=== PATIENT | female | born 1990 | race Two or more races ===

== ENCOUNTER → 2020-03-14 | Outpatient (CLI) | payer SELFPAY | END | disposition home or self-care (01) | LOC: LABWHC1 14:18 | PROVIDERS: ATTEND Family Medicine | DX: R05 Cough (principal) ==

== ENCOUNTER → 2020-06-24 | Outpatient (CLI) | payer SELFPAY | END | disposition home or self-care (01) | LOC: LABWHC1 11:41 | PROVIDERS: ATTEND Family Medicine | DX: Z20.828 Contact with and (suspected) exposure to other viral communicable diseases (principal) | CPT/HCPCS: U0003; C9803 ==

== ENCOUNTER 2020-09-10 13:55 | Emergency (ER) | payer BC ==
[2020-09-10] MEDS ORDERED: SODIUM CHLORIDE 0.9% 2,000 ML IV STA (14:07)
[2020-09-10] MEDS ORDERED: METOCLOPRAMIDE 5 MG/ML 2 ML VIAL IVP STA (14:07)
[2020-09-10] MEDS ORDERED: diphenhydrAMINE 50 MG/ML 1 ML VIAL IVP STA (14:07)
--- NOTE | 2020-09-10 14:23 | ED ---
General Adult HPI - General Chief complaint: Nausea/Vomiting/Diarrhea Stated complaint: Vomiting, 6 wks preg Time Seen by Provider: 09/10/20 14:00 Source: patient, family, RN notes reviewed Mode of arrival: ambulatory Limitations: no limitations - History of Present Illness Initial comments: This is a 30-year-old female presents emergency from chief complaint nausea vomiting . Patient states she is A0 states that she is approximately 7 weeks states that she's had mild crampypain or bleeding. Patient states she feels dehydrated. She was instructed, to presents emergency Department for IV fluids. She states she's been vomiting for 2 days. Patient denies any dysuria hematuria no flank pain no back pain no chest pain or shortness breath. - Related Data Home Medications Medication Instructions Recorded Confirmed Dextroamphetamine/Amphetamine 10 mg PO DAILY PRN 09/10/20 09/10/20 [Adderall] Sertraline HCl [Zoloft] 12.5 mg PO Q48H 09/10/20 09/10/20 Previous Rx's Medication Instructions Recorded Cephalexin [Keflex] 500 mg PO Q8HR #21 cap 09/10/20 Allergies Allergy/AdvReac Type Severity Reaction Status Date / Time No Known Allergies Allergy Verified 09/10/20 15:37 Review of Systems ROS Statement: Those systems with pertinent positive or pertinent negative responses have been documented in the HPI. ROS Other: All systems not noted in ROS Statement are negative. Past Medical History Past Medical History: No Reported History History of Any Multi-Drug Resistant Organisms: None Reported Past Surgical History: No Surgical Hx Reported Past Psychological History: Anxiety, Depression Smoking Status: Never smoker Past Alcohol Use History: Occasional Past Drug Use History: None Reported General Exam General appearance: alert, in no apparent distress Head exam: Present: atraumatic, normocephalic, normal inspection Eye exam: Present: normal appearance, PERRL, EOMI. Absent: scleral icterus, conjunctival injection, periorbital swelling ENT exam: Present: normal exam, normal oropharynx, mucous membranes moist Neck exam: Present: normal inspection, full ROM. Absent: tenderness, meningismus, lymphadenopathy Respiratory exam: Present: normal lung sounds bilaterally. Absent: respiratory distress, wheezes, rales, rhonchi, stridor Cardiovascular Exam: Present: normal rhythm, tachycardia, normal heart sounds. Absent: systolic murmur, diastolic murmur, rubs, gallop, clicks GI/Abdominal exam: Present: soft, normal bowel sounds. Absent: distended, tenderness, guarding, rebound, rigid Neurological exam: Present: alert, oriented X3, CN II-XII intact Skin exam: Present: warm, dry, intact, normal color. Absent: rash Course Vital Signs 09/10/20 09/10/20 13:57 15:36 Temperature 98.2 F 98.6 F Pulse Rate 120 H 86 Respiratory 20 18 Rate Blood Pressure 121/86 108/61 O2 Sat by Pulse 97 100 Oximetry Medical Decision Making - Medical Decision Making Ultrasound shows viable IUP 6 weeks and 3 days. Patient abdomen soft nontender this time she feels greatly improved. IV fluids. Patient has prescription for Zofran at home. Patient will be discharged in stable condition patient does have evidence of urinary tract infection. - Lab Data Result diagrams: 09/10/20 14:27 09/10/20 14:27 Lab Results 09/10/20 09/10/20 09/10/20 Range/Units 14:27 14:27 15:33 WBC 10.2 (3.8-10.6) k/uL RBC 4.60 (3.80-5.40) m/uL Hgb 14.7 (11.4-16.0) gm/dL Hct 43.0 (34.0-46.0) % MCV 93.6 (80.0-100.0) fL MCH 31.9 (25.0-35.0) pg MCHC 34.1 (31.0-37.0) g/dL RDW 13.3 (11.5-15.5) % Plt Count 226 (150-450) k/uL MPV 8.7 Neutrophils % 69 % Lymphocytes % 21 % Monocytes % 7 % Eosinophils % 1 % Basophils % 0 % Neutrophils # 7.0 (1.3-7.7) k/uL Lymphocytes # 2.2 (1.0-4.8) k/uL Monocytes # 0.7 (0-1.0) k/uL Eosinophils # 0.1 (0-0.7) k/uL Basophils # 0.0 (0-0.2) k/uL Sodium 137 (137-145) mmol/L Potassium 4.0 (3.5-5.1) mmol/L Chloride 103 (98-107) mmol/L Carbon Dioxide 23 (22-30) mmol/L Anion Gap 11 mmol/L BUN 6 L (7-17) mg/dL Creatinine 0.49 L (0.52-1.04) mg/dL Est GFR (CKD-EPI)AfAm >90 (>60 ml/min/1.73 sqM) Est GFR (CKD-EPI)NonAf >90 (>60 ml/min/1.73 sqM) Glucose 105 H (74-99) mg/dL Calcium 9.5 (8.4-10.2) mg/dL Total Bilirubin 0.7 (0.2-1.3) mg/dL AST 25 (14-36) U/L ALT 25 (4-34) U/L Alkaline Phosphatase 67 (38-126) U/L Total Protein 8.0 (6.3-8.2) g/dL Albumin 4.5 (3.5-5.0) g/dL Amylase 64 (30-110) U/L Lipase 185 (23-300) U/L HCG, Quant 44455.7 mIU/mL Urine Color Light Yellow Urine Appearance Cloudy H (Clear) Urine pH 7.5 (5.0-8.0) Ur Specific [place] 1.005 (1.001-1.035) Urine Protein Negative (Negative) Urine Glucose (UA) Negative (Negative) Urine Ketones Negative (Negative) Urine Blood Small H (Negative) Urine Nitrite Negative (Negative) Urine Bilirubin Negative (Negative) Urine Urobilinogen <2.0 (<2.0) mg/dL Ur Leukocyte Esterase Large H (Negative) Urine RBC 2 (0-5) /hpf Urine WBC 20 H (0-5) /hpf Ur Squamous Epith Cells 10 H (0-4) /hpf Urine Bacteria Occasional H (None) /hpf Urine Mucus Rare H (None) /hpf Disposition Clinical Impression: Dehydration, Nausea/vomiting in , UTI (urinary tract infection) Disposition: HOME SELF-CARE Condition: Stable Instructions (If sedation given, give patient instructions): Urinary Tract Infection in (ED) Additional Instructions: Please return to the Emergency Department if symptoms worsen or any other concerns. Prescriptions: Cephalexin [Keflex] 500 mg PO Q8HR #21 cap Is patient prescribed a controlled substance at d/c from ED?: No Referrals: Gasper Wilcox MD [Primary Care Provider] - 1-2 days Time of Disposition: 16:04
[2020-09-10 14:43] LABS: ALT 25 U/L (4-34); AST 25 U/L (14-36); African American GFR (CKD) >90 (>60 ml/min/1.73 sqM); Albumin 4.5 g/dL (3.5-5.0); Alkaline Phosphatase 67 U/L (38-126); Amylase 64 U/L (30-110); Anion Gap 11 mmol/L; Blood Urea Nitrogen 6 mg/dL (7-17); Calcium 9.5 mg/dL (8.4-10.2); Carbon Dioxide 23 mmol/L (22-30); Chloride 103 mmol/L (98-107); Glucose 105 mg/dL (74-99); Lipase 185 U/L (23-300); Non-African American GFR(CKD) >90 (>60 ml/min/1.73 sqM); Sodium 137 mmol/L (137-145); Total Bilirubin 0.7 mg/dL (0.2-1.3)
[2020-09-10 14:47] LABS: Basophils % (A) 0 %; Eosinophils # (A) 0.1 k/uL (0-0.7); Eosinophils % (A) 1 %; HGB 14.7 gm/dL (11.4-16.0); Lymphocytes # (A) 2.2 k/uL (1.0-4.8); Lymphocytes % (A) 21 %; MCH 31.9 pg (25.0-35.0); MCHC 34.1 g/dL (31.0-37.0); MCV 93.6 fL (80.0-100.0); Mean Platelet Volume 8.7; Monocytes # (A) 0.7 k/uL (0-1.0); Monocytes % (A) 7 %; Neutrophils % (A) 69 %; Platelet Count 226 k/uL (150-450); RDW 13.3 % (11.5-15.5); WBC 10.2 k/uL (3.8-10.6)
--- NOTE | 2020-09-10 15:29 | US ---
EXAMINATION TYPE: Transabdominal DATE OF EXAM: 09/10/2020 3:05 PM COMPARISON: NONE CLINICAL HISTORY: pain. vomiting EXAM PERFORMED: Transabdominal (TA) EXAM MEASUREMENTS: GESTATIONAL AGE / DATING Physician Established: Not yet established Dates by LMP: (6 weeks/4 days) EDC: 05/02/21 Dates by First Scan: No previous this is first scan Dates by Current Scan for: (6 weeks/3 days) EDC: 05/03/21 MATERNAL ANATOMY Uterus: 9.0 x 5.1 x 6.1cm Right Ovary: 2.7 x 1.5 x 1.9cm Left Ovary: 3.1 x 2.1 x 2.4cm Post CDS / Adnexa: small amount of free fluid left adnexa Presence of free fluid: YES Presence of corpus luteal cyst: yes, hypoechoic area left ovary = 2.1 x 1.6 x 1.8cm Presence of subchorionic bleed: small fluid collection adjacent to GS = 1.2cm GESTATION / SURVEY CRL: 0.5cm (6 weeks/3 days) Yolk Sac (normal less than 6mm): 0.2cm Heart Rate: 156 bpm Rhythm: Normal IUP: Viable IUP Date of LMP: 07/26/20 Beta HcG (if available): Not available at this time IMPRESSION: 1. January gestation estimated at 6 weeks 3 days gestation based on crown-rump length measurement. Cardiac activity measures 156 bpm.
[2020-09-10 15:38] VITALS: BP 108/61; PULSE 86; RESP 18; TEMP 98.6
[2020-09-10 15:44] LABS: Appearance,Urine Cloudy (Clear); Bacteria,Urine Occasional /hpf; Bilirubin,Urine Negative (Negative); Blood,Urine Small (Negative); Color,Urine Light Yellow; Glucose,Urine (UA) Negative (Negative); Ketones,Urine Negative (Negative); Leukocyte Esterase,Urine Large (Negative); Mucus,Urine Rare /hpf; Nitrite,Urine Negative (Negative); PH, Urine 7.5 (5.0-8.0); Protein,Urine Negative (Negative); RBC,Urine 2 /hpf (0-5); Specific Gravity,Urine 1.005 (1.001-1.035); Squamous Epithelial Cell,Urine 10 /hpf (0-4); Urobilinogen,Urine <2.0 mg/dL (<2.0); WBC,Urine 20 /hpf (0-5)
[2020-09-10 15:53] LABS: HCG,Quantitative Serum 53940.7 mIU/mL
== END 2020-09-10 16:20 | disposition home or self-care (01) ==
LOC: EC 13:55
DX: O21.9 Vomiting of pregnancy, unspecified (principal); O99.281 Endocrine, nutritional and metabolic diseases complicating pregnancy, first trimester; E86.0 Dehydration; O23.41 Unspecified infection of urinary tract in pregnancy, first trimester; O99.341 Other mental disorders complicating pregnancy, first trimester; F32.9 Major depressive disorder, single episode, unspecified; F41.9 Anxiety disorder, unspecified; O26.891 Other specified pregnancy related conditions, first trimester; R00.0 Tachycardia, unspecified; Z79.899 Other long term (current) drug therapy; Z3A.01 Less than 8 weeks gestation of pregnancy
CPT/HCPCS: 36415; 80053; 82150; 83690; 85025; 81001; 84702; 87086; 76801; 99284; 96374; 96375; 96361 ×2; J1200; J2765

== ENCOUNTER → 2020-09-26 | Outpatient (CLI) | payer BC ==
[2020-09-26 22:56] LABS: HCT 37.7 % (37.2-46.3); HGB 12.2 g/dL (12.0-15.0); MCH 30.8 pg (27.0-32.0); MCHC 32.4 g/dL (32.0-37.0); MCV 95.2 fL (80.0-97.0); Mean Platelet Volume 12.1 fL (9.5-12.2); Platelet Count 222 X 10*3/uL (140-440); RBC 3.96 X 10*6/uL (4.10-5.20); RDW 12.6 % (11.5-14.5); WBC 12.14 X 10*3/uL (4.50-10.00)
[2020-09-27 00:29] LABS: Progesterone 9.3 ng/mL
[2020-09-27 00:51] LABS: % Iron Saturation 23.49 (12.00-45.00); ALT 31 U/L (8-44); AST 18 U/L (13-35); African American GFR (CKD) 150.5 (60.0-200.0); Alkaline Phosphatase 67 U/L (41-126); Calcium 8.8 mg/dL (8.7-10.3); Carbon Dioxide 24.8 mmol/L (21.6-31.8); Chloride 102 mmol/L (96-109); Estradiol 1936.6 pg/mL; Folate, Serum 17.1 ng/mL; Follicle Stimulating Hormone <0.3 mIU/mL; GGT <15 U/L (0-38); Globulin 2.1 g/dL (1.6-3.3); Glucose 98 mg/dL (70-110); Insulin Level 37.2 mIU/mL (3.0-25.0); Iron 78 ug/dL (50-170); Luteinizing Hormone <0.1 mIU/mL; Magnesium 1.9 mg/dL (1.5-2.4); Non-African American GFR(CKD) 129.9 (60.0-200.0); Potassium 4.1 mmol/L (3.5-5.5); Sodium 135 mmol/L (135-145); Total Bilirubin 0.4 mg/dL (0.3-1.2); Total Iron Binding Capacity 332 ug/dL (228-460); Total Protein 6.5 g/dL (6.2-8.2)
[2020-09-27 01:12] LABS: Hemoglobin A1C 5.1 % (4.0-6.0)
[2020-09-27 11:23] LABS: Vitamin D, 1, 25-Dihydroxy 89 pg/mL (20 - 79)
[2020-09-27 12:07] LABS: Zinc, Serum 57 ug/dL (60-130)
== END | disposition home or self-care (01) ==
LOC: LABWHC1 16:12
PROVIDERS: ATTEND Legal Medicine
DX: E11.69 Type 2 diabetes mellitus with other specified complication (principal); E23.7 Disorder of pituitary gland, unspecified; E27.8 Other specified disorders of adrenal gland; E28.39 Other primary ovarian failure; E63.9 Nutritional deficiency, unspecified; E06.3 Autoimmune thyroiditis
CPT/HCPCS: 36415; 80053; 82306; 82397; 82525; 82533; 82607; 82626; 82652; 82670; 82672; 82728; 82746; 82977; 83001; 83002; 83036; 83090; 83525; 83540; 83550; 83735; 84140; 84144; 84305; 84403; 84432; 84439; 84443; 84481; 84482; 84630; 85027; 86141; 86376; 86800

== ENCOUNTER 2021-01-06 19:36 | Outpatient (CLI) | payer BC ==
[2021-01-06] MEDS ORDERED: ONDANSETRON 4 MG/2 ML VIAL IVP STA (19:59)
[2021-01-06] MEDS ORDERED: LACTATED RINGERS 1,000 ML IV SCH (20:00)
[2021-01-06 20:33] LABS: Appearance,Urine Cloudy (Clear); Bacteria,Urine Rare /hpf; Bilirubin,Urine Negative (Negative); Blood,Urine Negative (Negative); Color,Urine Yellow; Glucose,Urine (UA) Negative (Negative); Ketones,Urine 2+ (Negative); Leukocyte Esterase,Urine Negative (Negative); Mucus,Urine Rare /hpf; Nitrite,Urine Negative (Negative); PH, Urine 6.5 (5.0-8.0); Protein,Urine Trace (Negative); Squamous Epithelial Cell,Urine 13 /hpf (0-4); Urobilinogen,Urine <2.0 mg/dL (<2.0); WBC,Urine 2 /hpf (0-5)
[2021-01-06 21:11] VITALS: BP 119/69; PULSE 121; RESP 16; TEMP 98.2
--- NOTE | 2021-01-30 16:31 | P.MSEPDOC ---
Presenting Problems - Arrival Data Date of Arrival on Unit: 01/06/21 Time of Arrival on Unit: 19:36 Mode of Transport: Ambulatory - Complaint OB-Reason for Admission/Chief Complaint: Acute Nausea/Vomiting Comment: pt. present to triage due to patient thinks she has food posioning, patient. has been N&V since 11:00 yesturday, patient states her and her fiance went to [facility] in [place] and they both have been sick since then, patient states some. cramping this morning but not currently, and slight headache at this time. patient. states she hasnt been able keep anything down food or water since 11:00 yesturday. Medical History - Information : 2 Para: 1 Term: 1 : 0 Abortions: Spontaneous or Elective: 0 Number of Living Children: 1 - Gestational Age Gestational Age by MARTIN (wks/days): 23 Weeks and 3 Days Review of Systems - Review of Systems Constitutional: No problems Breast: No problems ENT: No problems Cardiovascular: No problems Respiratory: No problems Gastrointestinal: No problems Genitourinary: No problems Musculoskeletal: No problems Neurological: No problems Skin: No problems Vital Signs - Temperature Temperature: 98.2 F Temperature Source: Temporal Artery Scan - Pulse Pulse Oximetery Pulse Rate: 121 Pulse Assessment Method: Pulse Oximetry - Respirations Respiratory Rate: 16 Oxygen Delivery Method: Room Air O2 Sat by Pulse Oximetry: 96 - Blood Pressure Right Arm Blood Pressure: 119/69 Blood Pressure Mean: 85 Blood Pressure Source: Automatic Cuff Medical Screen Scoring - Assessment - Baby A Baseline FHR: 150 Physician Notification - Physician Notified Physician Notified Date: 01/06/21 Physician Notified Time: 19:56 Physician: Lisa Sung New Order Received: Yes - Notification Comment Comment: Orders for IV fluid 1Liter bolus,COVID swab and urinalysis, and zofran 4mg, Labs reviewed, patient states feeling much better, orders to discharge patient home with bland diet and follow up this week in office Disposition - Disposition OB Disposition: Discharge to home Discharge Date: 01/06/21 Discharge Time: 21:03 I agree with the RN Medical Screening Exam: Yes Case reviewed; plan agreed upon as documented in EMR&OBIX.: Yes Comments: Patient has not seen or examined by myself Diagnosis: VOMITING OF , UNSPECIFIED
== END 2021-01-06 21:03 | disposition home or self-care (01) ==
LOC: FBPOP 19:36
PROVIDERS: ATTEND Obstetrics & Gynecology Obstetrics
DX: O21.2 Late vomiting of pregnancy (principal); Z3A.23 23 weeks gestation of pregnancy; Z87.891 Personal history of nicotine dependence
CPT/HCPCS: 99214; 96361; 96374; 81001; 87635; J2405; 96360; 96376

== ENCOUNTER 2021-03-28 11:24 | Outpatient (CLI) | payer BC ==
[2021-03-28] MEDS ORDERED: LACTATED RINGERS 1,000 ML IV SCH (12:30)
[2021-03-28] MEDS: TERBUTALINE 1 MG/ML VIAL SQ PRN ×2 (15:02→15:19)
[2021-03-28 16:12] VITALS: BP 130/71; PULSE 95; RESP 16; TEMP 98.5
--- NOTE | 2021-05-28 16:15 | P.MSEPDOC ---
Presenting Problems - Arrival Data Date of Arrival on Unit: 03/28/21 Time of Arrival on Unit: 11:24 Mode of Transport: Ambulatory - Complaint OB-Reason for Admission/Chief Complaint: Other Comment: pt here from home with c/o possible rom 03/27 at 0200, pt felt a large gush of. fluid that was clear, denies further leaking at this time, reports + fm, reports slight. cramping this afternoon, denies vb/complications wtih ,abd soft and non tender Medical History - Information : 2 Para: 1 Term: 1 : 0 Abortions: Spontaneous or Elective: 0 Number of Living Children: 1 - Gestational Age Gestational Age by MARTIN (wks/days): 35 Weeks and 0 Days Review of Systems - Review of Systems Constitutional: No problems Breast: No problems ENT: No problems Cardiovascular: No problems Respiratory: No problems Gastrointestinal: No problems Genitourinary: No problems Musculoskeletal: No problems Neurological: No problems Skin: No problems Vital Signs - Temperature Temperature: 98.5 F Temperature Source: Oral - Pulse Right Brachial Pulse Rate: 95 Pulse Assessment Method: Automatic Cuff - Respirations Respiratory Rate: 16 Oxygen Delivery Method: Room Air O2 Sat by Pulse Oximetry: 97 - Blood Pressure Right Arm Blood Pressure: 130/71 Blood Pressure Mean: 90 Blood Pressure Source: Automatic Cuff Medical Screen Scoring - Cervical Exam Dilation (cm): 0 Membranes: Intact - Uterine Contractions Frequency From (mins): 8 Frequency To (mins): 11 Duration From (seconds): 70 Duration To (seconds): 90 Intensity: Mild Resting: Soft to palpation - Assessment - Baby A Baseline FHR: 135 Heart Rate - NICHD Category: Category I (Normal) NST: Reactive Physician Notification - Physician Notified Physician Notified Date: 03/28/21 Physician Notified Time: 12:28 Physician: DR Sung New Order Received: Yes Maternal Triage Index - Prompt/Priority 3 Prompt Priority 3: Yes Criteria Met for Priority 3: negative amnisure for ? ROM, monitor for r/o labor Disposition - Disposition OB Disposition: Discharge to home, Written follow up instructions reviewed Discharge Date: 03/28/21 Discharge Time: 16:11 I agree with the RN Medical Screening Exam: Yes Case reviewed; plan agreed upon as documented in EMR&OBIX.: Yes Comments: Patient was not seen or examined by myself Diagnosis: FALSE LABOR BEFORE 37 COMPLETED WEEKS OF GEST, THIRD TRI
== END 2021-03-28 16:13 | disposition home or self-care (01) ==
LOC: FBPOP 11:24
PROVIDERS: ATTEND Obstetrics & Gynecology Obstetrics
DX: O47.03 False labor before 37 completed weeks of gestation, third trimester (principal); Z3A.35 35 weeks gestation of pregnancy; Z87.891 Personal history of nicotine dependence
CPT/HCPCS: 59025; 99214; 96360; 96361; 96372; J3105

== ENCOUNTER 2021-04-17 05:45 | Inpatient (IN) | payer BC, OTHER ==
[2021-04-17] MEDS: LACTATED RINGERS 1,000 ML IV SCH (09:05)
[2021-04-17] MEDS ORDERED: TERBUTALINE 1 MG/ML VIAL SQ PRN (09:44)
[2021-04-17] MEDS ORDERED: LIDOCAINE 0.5% (PF) 5 MG/ML (50 ML SDV) SQ PRN (09:44)
[2021-04-17] MEDS ORDERED: METHYLERGONOVINE 0.2 MG/ML 1 ML AMP IM PRN (09:44)
[2021-04-17] MEDS ORDERED: CARBOPROST TROMETHAMINE 250 MCG/ML 1 ML AMP IM PRN (09:44)
[2021-04-17] MEDS ORDERED: OXYTOCIN 10 UNIT/ML 1 ML VIAL IM PRN (09:44)
[2021-04-17] MEDS ORDERED: LACTATED RINGERS 1,000 ML IV SCH (09:45)
[2021-04-17] MEDS ORDERED: OXYTOCIN 30 UNITS/500 ML NS 30 UNIT in SALINE 1 500ML.BAG IV SCH ×2 (09:45→19:15)
[2021-04-17 10:01] VITALS: RESP 16
[2021-04-17 10:09] LABS: Basophils % (A) 0 %; Eosinophils # (A) 0.1 k/uL (0-0.7); Eosinophils % (A) 1 %; HCT 34.5 % (34.0-46.0); HGB 11.9 gm/dL (11.4-16.0); Lymphocytes % (A) 19 %; MCH 31.6 pg (25.0-35.0); MCHC 34.3 g/dL (31.0-37.0); MCV 91.9 fL (80.0-100.0); Mean Platelet Volume 10.4; Monocytes # (A) 0.8 k/uL (0-1.0); Monocytes % (A) 7 %; Neutrophils # (A) 7.6 k/uL (1.3-7.7); Neutrophils % (A) 71 %; Platelet Count 159 k/uL (150-450); RBC 3.75 m/uL (3.80-5.40); RDW 15.2 % (11.5-15.5); WBC 10.8 k/uL (3.8-10.6)
[2021-04-17] MEDS ORDERED: fentaNYL (PF) 50 MCG/ML 5 ML AMP ONE (13:41)
[2021-04-17] MEDS ORDERED: ePHEDrine SULFATE/0.9% NACL/PF 50 MG/5 ML SYRINGE IV ONE (13:41)
[2021-04-17] MEDS ORDERED: SODIUM CHLORIDE 0.9% 100 ML BAG ONE (13:41)
[2021-04-17] MEDS ORDERED: ROPIVACAINE 5MG/ML 20ML VIAL ONE (13:41)
[2021-04-17] MEDS ORDERED: HYDROCORTISONE 2.5% RECTAL CREAM 30 GM TUBE RECTAL PRN (19:11)
[2021-04-17] MEDS ORDERED: diphenhydrAMINE 50 MG/ML 1 ML VIAL IVP PRN ×2 (19:11)
[2021-04-17] MEDS ORDERED: BENZOCAINE/MENTHOL SPRAY 1 GM/SPRAY AEROSOL TOPICAL PRN (19:11)
[2021-04-17] MEDS ORDERED: ZOLPIDEM 5 MG TAB PO PRN (19:11)
[2021-04-17] MEDS ORDERED: SIMETHICONE 80 MG CHEWABLE PO PRN (19:11)
[2021-04-17] MEDS ORDERED: diphenhydrAMINE 50 MG CAP PO PRN (19:11)
[2021-04-17] MEDS ORDERED: ACETAMINOPHEN TAB 325 MG TAB PO PRN (19:11)
[2021-04-17] MEDS ORDERED: diphenhydrAMINE 25 MG CAP PO PRN (19:11)
[2021-04-17] MEDS ORDERED: LANOLIN CREAM 5 GM TUBE TOPICAL PRN (19:11)
--- NOTE | 2021-04-17 19:14 | P.PROBDLV ---
Vaginal Delivery Note - . Vaginal Delivery Note: This is a 30-year-old 2 para 1 at 38-2/7 weeks, estimated due date of 04/29/21. Patient presented to labor and delivery this morning with complaints of cramping. Patient was noted to make cervical change and was admitted to labor and delivery for labor. Patient progressed slowly through labor amniotomy was performed and clear fluid was obtained. Patient did become uncomfortable and requested epidural placed. Epidural was placed without difficulty by the anesthesia department. Patient did necessitate Pitocin augmentation of labor. Patient progressed to complete began pushing and had a normal spontaneous vaginal delivery of a viable male infant at 1856, weight of 8 lbs. 7 oz., Apgars of 8 and 9 at one and 5 minutes respectively. A loose body cord was delivered through. After two-minute delayed the umbo cord was doubly clamped and cut and the infant was handed to maternal abdomen. The placenta was delivered spontaneously intact with a three-vessel cord being noted. On inspection the patient's vaginal vault a secondary midline laceration was appreciated and repaired in usual fashion with 3-0 repeat after instillation of lidocaine. A rectal exam was performed and found to be normal in nature. The uterus is noted to be firm and below the umbilicus after delivery. Estimated blood loss 200 mL. Patient and infant tolerated delivery well and are resting comfortably. All counts are noted to be correct times through the anal delivered.
[2021-04-17] MEDS: IBUPROFEN 600 MG TAB PO SCH (19:30)
[2021-04-18] MEDS: SENNOSIDES-DOCUSATE SODIUM 1 EACH TAB PO SCH ×3 (00:51→21:19)
[2021-04-18] MEDS: IBUPROFEN 600 MG TAB PO SCH ×4 (03:30→21:18)
--- NOTE | 2021-04-18 12:30 | P.DS ---
Providers Date of admission: 04/17/21 08:38 Expected date of discharge: 04/18/21 Attending physician: Lisa Sung Primary care physician: Stated None - Discharge Diagnosis(es) (1) Term Current Visit: Yes Status: Acute (2) Active labor Current Visit: Yes Status: Acute (3) Status post normal vaginal delivery Current Visit: Yes Status: Acute (4) Obstetric vaginal laceration with second degree perineal laceration Current Visit: Yes Status: Acute Hospital Course: This is a 30-year-old 2 para 1 presented to labor and delivery at 38-2/7 weeks with complaints of contractions/cramping. Patient was noted to be 4 cm, and admitted to labor and delivery. Patient had uncomplicated care. For full details on this patient please see the dictated history and physical. Patient progressed slowly through labor amniotomy was performed and clear fluid was obtained. Patient eventually became uncomfortable and requested epidural placement. Epidural was placed without difficulty by the anesthesia department. Patient was noted to have a decrease in contractions after epidural therefore Pitocin augmentation was begun. Patient progressed to complete began pushing and had a normal spontaneous vaginal delivery with a loose nuchal cord that was delivered through at 1856, weight of 8 lbs. 7 oz., Apgars of 8 and 9 at one and 5 minutes respectively. A second-degree vaginal laceration was appreciated after delivery. This was repaired in the usual fashion with 3-0 Rapide. On this post day #1 patient is feeling well. She is ambulating and voiding without difficulty. She is tolerating regular diet without nausea or vomiting. She states her pain is well-controlled. She is breast-feeding without difficulty. She would like discharge home at 24 hours. Patient Condition at Discharge: Good Plan - Discharge Summary New Discharge Prescriptions: No Action Pnv,Calcium 72/Iron/Folic Acid [ Plus Tablet] 1 each PO DAILY Discharge Medication List Pnv,Calcium 72/Iron/Folic Acid [ Plus Tablet] 1 each PO DAILY 01/06/21 [History] Follow up Appointment(s)/Referral(s): Lisa Sung DO [Doctor of Osteopathic Medicine] - 4 Weeks Patient Instructions/Handouts: Vaginal Delivery (DC), Vaginal Delivery (GEN) Discharge Disposition: HOME SELF-CARE
[2021-04-18 16:14] VITALS: BP 123/56; PULSE 64; TEMP 97.3
[2021-04-18] MEDS: LACTATED RINGERS 1,000 ML IV SCH (21:19)
== END 2021-04-18 20:20 | disposition home or self-care (01) | DRG 807 ==
LOC: FBPOP 05:45 → 4FBP 08:38
PROVIDERS: ADMIT Obstetrics & Gynecology Obstetrics; ATTEND Obstetrics & Gynecology Obstetrics
PROC: 10E0XZZ Delivery of Products of Conception, External Approach (ICD-10-PCS; principal; 2021-04-17)
PROC: 0KQM0ZZ Repair Perineum Muscle, Open Approach (ICD-10-PCS; 2021-04-17)
DX: O70.1 Second degree perineal laceration during delivery (principal); Z37.0 Single live birth; O69.81X0 Labor and delivery complicated by cord around neck, without compression, not applicable or unspecified; Z3A.38 38 weeks gestation of pregnancy; Z20.822 Contact with and (suspected) exposure to COVID-19
CPT/HCPCS: 59025; 85025; 86850; 86900; 86901; 87635; 99213

== ENCOUNTER 2022-02-03 00:11 | Emergency (ER) | payer BC ==
[2022-02-03 00:26] VITALS: RESP 19; TEMP 98
[2022-02-03] MEDS ORDERED: SODIUM CHLORIDE 0.9% 1,000 ML IV STA (00:44)
[2022-02-03 01:33] LABS: Basophils # (A) 0.1 k/uL (0-0.2); Basophils % (A) 1 %; Eosinophils # (A) 0.1 k/uL (0-0.7); Eosinophils % (A) 1 %; HCT 38.1 % (34.0-46.0); HGB 12.9 gm/dL (11.4-16.0); Lymphocytes % (A) 25 %; MCH 31.4 pg (25.0-35.0); MCHC 33.7 g/dL (31.0-37.0); MCV 93.1 fL (80.0-100.0); Mean Platelet Volume 9.2; Monocytes # (A) 0.5 k/uL (0-1.0); Monocytes % (A) 6 %; Neutrophils # (A) 5.2 k/uL (1.3-7.7); Neutrophils % (A) 66 %; Platelet Count 206 k/uL (150-450); RBC 4.09 m/uL (3.80-5.40); WBC 7.9 k/uL (3.8-10.6)
[2022-02-03 01:35] LABS: Appearance,Urine Clear (Clear); Bilirubin,Urine Negative (Negative); Blood,Urine Negative (Negative); Color,Urine Colorless; Glucose,Urine (UA) Negative (Negative); Ketones,Urine Negative (Negative); Leukocyte Esterase,Urine Negative (Negative); Nitrite,Urine Negative (Negative); Protein,Urine Negative (Negative); Specific Gravity,Urine 1.002 (1.001-1.035); Urobilinogen,Urine <2.0 mg/dL (<2.0)
[2022-02-03 01:44] LABS: ALT 17 U/L (4-34); AST 24 U/L (14-36); African American GFR (CKD) >90 (>60 ml/min/1.73 sqM); Albumin 4.6 g/dL (3.5-5.0); Alkaline Phosphatase 76 U/L (38-126); Anion Gap 7 mmol/L; Blood Urea Nitrogen 12 mg/dL (7-17); Calcium 9.3 mg/dL (8.4-10.2); Carbon Dioxide 28 mmol/L (22-30); Chloride 104 mmol/L (98-107); Glucose 93 mg/dL (74-99); Magnesium 2.2 mg/dL (1.6-2.3); Non-African American GFR(CKD) 83 (>60 ml/min/1.73 sqM); Potassium 3.5 mmol/L (3.5-5.1); Sodium 139 mmol/L (137-145); Total Bilirubin 0.3 mg/dL (0.2-1.3); Total Protein 7.3 g/dL (6.3-8.2)
[2022-02-03 01:45] LABS: Amphetamine Screen,Urine Detected (NotDetected); Barbiturate Screen,Urine Not Detected (NotDetected); Benzodiazepines Screen,Urine Not Detected (NotDetected); Cocaine Screen,Urine Not Detected (NotDetected); Methadone Screen, Urine Not Detected (NotDetected); Opiate Screen,Urine Not Detected (NotDetected); Oxycodone Screen, Urine Not Detected (NotDetected); Phencyclidine Screen,Urine Not Detected (NotDetected); Tricyclic Antidepressant,Urine Not Detected (NotDetected); Urn Cannabinoid Scrn Not Detected (NotDetected)
[2022-02-03 01:50] LABS: Partial Thromboplastin Time 23.9 sec (22.0-30.0); Prothrombin Time 10.5 sec (9.0-12.0)
--- NOTE | 2022-02-03 02:35 | XR ---
EXAM: XR Chest, 2 Views CLINICAL HISTORY: ITS.REASON XR Reason: dysrhythmia TECHNIQUE: Frontal and lateral views of the chest. COMPARISON: CXR April 28, 2014. FINDINGS: Lungs: Unremarkable. No consolidation. Pleural space: Unremarkable. No pneumothorax. Heart: Unremarkable. No cardiomegaly. Mediastinum: Unremarkable. Bones/joints: Unremarkable. IMPRESSION: Normal chest x-rays.
--- NOTE | 2022-02-03 03:13 | ED ---
Arrhythmia/Palpitations HPI - General Chief Complaint: Arrhythmia/Palpitations Stated Complaint: Palpitations Time Seen by Provider: 02/03/22 00:27 Source: patient Mode of arrival: EMS - History of Present Illness Initial Comments: Patient is a 31-year-old female presenting with chief complaint of palpitations. Patient states that for the last 3 months she has been having episodes of palpitations, accompanied by chest warmth and dizziness. Patient states that she has not followed with her PCP for these symptoms. She reports a history of anxiety. Patient takes Adderall 3 times a day and consumes nergy drinks. She denies any chest pain, shortness of breath, weakness, nausea, vomiting, abdominal pain, numbness, tingling, headache, neck stiffness, vision or hearing changes. - Related Data Home Medications Medication Instructions Recorded Confirmed Vit No.180/Iron/Folic 1 each PO DAILY 01/06/21 04/17/21 [ Plus Tablet] Allergies Allergy/AdvReac Type Severity Reaction Status Date / Time No Known Allergies Allergy Verified 02/03/22 00:26 Review of Systems ROS Statement: Those systems with pertinent positive or pertinent negative responses have been documented in the HPI. ROS Other: All systems not noted in ROS Statement are negative. Past Medical History Past Medical History: No Reported History History of Any Multi-Drug Resistant Organisms: None Reported Past Surgical History: No Surgical Hx Reported Past Psychological History: Anxiety, Depression Smoking Status: Never smoker Past Alcohol Use History: Occasional Past Drug Use History: None Reported - Past Family History Mother Family Medical History: No Reported History General Exam Limitations: no limitations General appearance: alert, in no apparent distress Head exam: Present: atraumatic, normocephalic, normal inspection Eye exam: Present: normal appearance, EOMI. Absent: scleral icterus, periorbital swelling Neck exam: Present: normal inspection Respiratory exam: Present: normal lung sounds bilaterally. Absent: respiratory distress, wheezes, rales, rhonchi, stridor Cardiovascular Exam: Present: regular rate, normal rhythm, normal heart sounds. Absent: systolic murmur, diastolic murmur, rubs, gallop, clicks Extremities exam: Present: normal inspection Back exam: Present: normal inspection Neurological exam: Present: alert, oriented X3, CN II-XII intact Psychiatric exam: Present: normal affect, normal mood Skin exam: Present: warm, dry, intact, normal color. Absent: rash Course Vital Signs 02/03/22 02/03/22 02/03/22 00:24 00:45 03:25 Temperature 98 F Pulse Rate 85 80 68 Respiratory 19 Rate Blood Pressure 150/88 130/84 125/87 O2 Sat by Pulse 100 99 Oximetry EKG Findings - EKG Comments: EKG Findings:: Sinus rhythm with rate of 80. SD interval 138. QRS duration 110. No ischemic changes. Medical Decision Making - Medical Decision Making Patient is a 31-year-old female presenting with chief complaint of palpitations. Palpitations are accompanied by chest warmth and dizziness. Symptoms have been coming and going for the last 6 months. On examination heart and lungs are clear to auscultation. Lab work is unremarkable. Urine toxicology is positive for amphetamines, patient admits to taking Adderall 3 times a day. Chest x-rays negative for any acute process. Patient appears stable for discharge with outpatient follow-up at this time. Follow-up with PCP in one to 2 days. Report back to ER if any new or worsening symptoms. I discussed return parameters and answered all questions. Patient conveyed verbal understanding and agreed to the plan. I discussed this case with my attending Dr. Hinojosa. - Lab Data Result diagrams: 02/03/22 00:45 02/03/22 00:45 Lab Results 02/03/22 02/03/22 02/03/22 Range/Units 00:45 00:45 00:45 WBC 7.9 (3.8-10.6) k/uL RBC 4.09 (3.80-5.40) m/uL Hgb 12.9 (11.4-16.0) gm/dL Hct 38.1 (34.0-46.0) % MCV 93.1 (80.0-100.0) fL MCH 31.4 (25.0-35.0) pg MCHC 33.7 (31.0-37.0) g/dL RDW 13.0 (11.5-15.5) % Plt Count 206 (150-450) k/uL MPV 9.2 Neutrophils % 66 % Lymphocytes % 25 % Monocytes % 6 % Eosinophils % 1 % Basophils % 1 % Neutrophils # 5.2 (1.3-7.7) k/uL Lymphocytes # 2.0 (1.0-4.8) k/uL Monocytes # 0.5 (0-1.0) k/uL Eosinophils # 0.1 (0-0.7) k/uL Basophils # 0.1 (0-0.2) k/uL PT 10.5 (9.0-12.0) sec INR 1.0 (<1.2) APTT 23.9 (22.0-30.0) sec Sodium (137-145) mmol/L Potassium (3.5-5.1) mmol/L Chloride (98-107) mmol/L Carbon Dioxide (22-30) mmol/L Anion Gap mmol/L BUN (7-17) mg/dL Creatinine (0.52-1.04) mg/dL Est GFR (CKD-EPI)AfAm (>60 ml/min/1.73 sqM) Est GFR (CKD-EPI)NonAf (>60 ml/min/1.73 sqM) Glucose (74-99) mg/dL Calcium (8.4-10.2) mg/dL Magnesium (1.6-2.3) mg/dL Total Bilirubin (0.2-1.3) mg/dL AST (14-36) U/L ALT (4-34) U/L Alkaline Phosphatase (38-126) U/L Troponin I (0.000-0.034) ng/mL Total Protein (6.3-8.2) g/dL Albumin (3.5-5.0) g/dL TSH (0.465-4.680) mIU/L Urine Color Urine Appearance (Clear) Urine pH (5.0-8.0) Ur Specific [place] (1.001-1.035) Urine Protein (Negative) Urine Glucose (UA) (Negative) Urine Ketones (Negative) Urine Blood (Negative) Urine Nitrite (Negative) Urine Bilirubin (Negative) Urine Urobilinogen (<2.0) mg/dL Ur Leukocyte Esterase (Negative) Urine HCG, Qual (Not Detectd) Urine Opiates Screen Not Detected (NotDetected) Ur Oxycodone Screen Not Detected (NotDetected) Urine Methadone Screen Not Detected (NotDetected) Ur Propoxyphene Screen Not Detected (NotDetected) Ur Barbiturates Screen Not Detected (NotDetected) U Tricyclic Antidepress Not Detected (NotDetected) Ur Phencyclidine Scrn Not Detected (NotDetected) Ur Amphetamines Screen Detected H (NotDetected) U Methamphetamines Scrn Not Detected (NotDetected) U Benzodiazepines Scrn Not Detected (NotDetected) Urine Cocaine Screen Not Detected (NotDetected) U Marijuana (THC) Screen Not Detected (NotDetected) 02/03/22 02/03/22 02/03/22 Range/Units 00:45 00:45 00:45 WBC (3.8-10.6) k/uL RBC (3.80-5.40) m/uL Hgb (11.4-16.0) gm/dL Hct (34.0-46.0) % MCV (80.0-100.0) fL MCH (25.0-35.0) pg MCHC (31.0-37.0) g/dL RDW (11.5-15.5) % Plt Count (150-450) k/uL MPV Neutrophils % % Lymphocytes % % Monocytes % % Eosinophils % % Basophils % % Neutrophils # (1.3-7.7) k/uL Lymphocytes # (1.0-4.8) k/uL Monocytes # (0-1.0) k/uL Eosinophils # (0-0.7) k/uL Basophils # (0-0.2) k/uL PT (9.0-12.0) sec INR (<1.2) APTT (22.0-30.0) sec Sodium 139 (137-145) mmol/L Potassium 3.5 (3.5-5.1) mmol/L Chloride 104 (98-107) mmol/L Carbon Dioxide 28 (22-30) mmol/L Anion Gap 7 mmol/L BUN 12 (7-17) mg/dL Creatinine 0.93 (0.52-1.04) mg/dL Est GFR (CKD-EPI)AfAm >90 (>60 ml/min/1.73 sqM) Est GFR (CKD-EPI)NonAf 83 (>60 ml/min/1.73 sqM) Glucose 93 (74-99) mg/dL Calcium 9.3 (8.4-10.2) mg/dL Magnesium 2.2 (1.6-2.3) mg/dL Total Bilirubin 0.3 (0.2-1.3) mg/dL AST 24 (14-36) U/L ALT 17 (4-34) U/L Alkaline Phosphatase 76 (38-126) U/L Troponin I <0.012 (0.000-0.034) ng/mL Total Protein 7.3 (6.3-8.2) g/dL Albumin 4.6 (3.5-5.0) g/dL TSH 3.750 (0.465-4.680) mIU/L Urine Color Colorless Urine Appearance Clear (Clear) Urine pH 7.0 (5.0-8.0) Ur Specific [place] 1.002 (1.001-1.035) Urine Protein Negative (Negative) Urine Glucose (UA) Negative (Negative) Urine Ketones Negative (Negative) Urine Blood Negative (Negative) Urine Nitrite Negative (Negative) Urine Bilirubin Negative (Negative) Urine Urobilinogen <2.0 (<2.0) mg/dL Ur Leukocyte Esterase Negative (Negative) Urine HCG, Qual (Not Detectd) Urine Opiates Screen (NotDetected) Ur Oxycodone Screen (NotDetected) Urine Methadone Screen (NotDetected) Ur Propoxyphene Screen (NotDetected) Ur Barbiturates Screen (NotDetected) U Tricyclic Antidepress (NotDetected) Ur Phencyclidine Scrn (NotDetected) Ur Amphetamines Screen (NotDetected) U Methamphetamines Scrn (NotDetected) U Benzodiazepines Scrn (NotDetected) Urine Cocaine Screen (NotDetected) U Marijuana (THC) Screen (NotDetected) 02/03/22 Range/Units 00:45 WBC (3.8-10.6) k/uL RBC (3.80-5.40) m/uL Hgb (11.4-16.0) gm/dL Hct (34.0-46.0) % MCV (80.0-100.0) fL MCH (25.0-35.0) pg MCHC (31.0-37.0) g/dL RDW (11.5-15.5) % Plt Count (150-450) k/uL MPV Neutrophils % % Lymphocytes % % Monocytes % % Eosinophils % % Basophils % % Neutrophils # (1.3-7.7) k/uL Lymphocytes # (1.0-4.8) k/uL Monocytes # (0-1.0) k/uL Eosinophils # (0-0.7) k/uL Basophils # (0-0.2) k/uL PT (9.0-12.0) sec INR (<1.2) APTT (22.0-30.0) sec Sodium (137-145) mmol/L Potassium (3.5-5.1) mmol/L Chloride (98-107) mmol/L Carbon Dioxide (22-30) mmol/L Anion Gap mmol/L BUN (7-17) mg/dL Creatinine (0.52-1.04) mg/dL Est GFR (CKD-EPI)AfAm (>60 ml/min/1.73 sqM) Est GFR (CKD-EPI)NonAf (>60 ml/min/1.73 sqM) Glucose (74-99) mg/dL Calcium (8.4-10.2) mg/dL Magnesium (1.6-2.3) mg/dL Total Bilirubin (0.2-1.3) mg/dL AST (14-36) U/L ALT (4-34) U/L Alkaline Phosphatase (38-126) U/L Troponin I (0.000-0.034) ng/mL Total Protein (6.3-8.2) g/dL Albumin (3.5-5.0) g/dL TSH (0.465-4.680) mIU/L Urine Color Urine Appearance (Clear) Urine pH (5.0-8.0) Ur Specific [place] (1.001-1.035) Urine Protein (Negative) Urine Glucose (UA) (Negative) Urine Ketones (Negative) Urine Blood (Negative) Urine Nitrite (Negative) Urine Bilirubin (Negative) Urine Urobilinogen (<2.0) mg/dL Ur Leukocyte Esterase (Negative) Urine HCG, Qual Not Detected (Not Detectd) Urine Opiates Screen (NotDetected) Ur Oxycodone Screen (NotDetected) Urine Methadone Screen (NotDetected) Ur Propoxyphene Screen (NotDetected) Ur Barbiturates Screen (NotDetected) U Tricyclic Antidepress (NotDetected) Ur Phencyclidine Scrn (NotDetected) Ur Amphetamines Screen (NotDetected) U Methamphetamines Scrn (NotDetected) U Benzodiazepines Scrn (NotDetected) Urine Cocaine Screen (NotDetected) U Marijuana (THC) Screen (NotDetected) Disposition Clinical Impression: Palpitations Disposition: HOME SELF-CARE Condition: Fair Instructions (If sedation given, give patient instructions): Heart Palpitations (ED) Additional Instructions: Follow-up with PCP in one to 2 days. Report back to ER if any new or worsening symptoms. Is patient prescribed a controlled substance at d/c from ED?: No Referrals: Gasepr Wilcox MD [Primary Care Provider] - 1-2 days Time of Disposition: 03:13
[2022-02-03 03:26] VITALS: BP 125/87; PULSE 68
== END 2022-02-03 03:26 | disposition home or self-care (01) ==
LOC: EC 00:11
DX: R00.2 Palpitations (principal)
CPT/HCPCS: 36415; 71046; 80053; 80306; 81003; 81025; 83735; 84443; 84484; 85025; 85610; 85730; 93005; 96360; 99285

== ENCOUNTER → 2022-02-20 | Outpatient (CLI) | payer BC ==
--- NOTE | 2022-03-02 13:23 | EM ---
EVENT MONITOR Patient's rhythm strips were reviewed. Predominant rhythm appears to be sinus and sinus tachycardia. There are no significant arrhythmias noted. Most of these were auto capture. There were 1 or 2 episodes of sensation when patient felt some flutter, but the rhythm was sinus. FINAL IMPRESSION: Predominant rhythm is sinus. No significant arrhythmia. No correlation of any arrhythmia when patient felt a sensation of a fluttering feeling in the chest. MMODL / IJN: [id number] /
== END | disposition home or self-care (01) ==
LOC: RADECHMAIN 07:40
PROVIDERS: ATTEND Family Medicine
DX: R00.2 Palpitations (principal)
CPT/HCPCS: 93270

== ENCOUNTER 2022-06-07 18:15 | Emergency (ER) | payer BC, OTHER ==
[2022-06-07 18:24] VITALS: BP 134/88; PULSE 89; RESP 18; TEMP 98
--- NOTE | 2022-06-07 18:48 | ED ---
Psych HPI - General Chief Complaint: Psychiatric Symptoms Stated Complaint: Mental Health Time Seen by Provider: 06/07/22 18:30 Source: patient, RN notes reviewed Mode of arrival: ambulatory - History of Present Illness Initial Comments: Patient is a pleasant 32-year-old male presenting to the emergency room with concerns regarding worsened anxiety and depression and intrusive thoughts of suicide without plan or intent. She denies any homicidal thoughts, hallucinations or delusions. She reports that due to her symptoms she restarted her SSRI of Zoloft 25 mg yesterday and did report some side effects of nausea but overall with the exception of her mental health denies any other complaints or concerns. She denies any chest pain, shortness breath, abdominal pain, vomiting, diarrhea, headache, dizziness, fevers or chills. She has no significant past medical history with the exception of her anxiety and depression. - Related Data Home Medications Medication Instructions Recorded Confirmed Vit No.180/Iron/Folic 1 each PO DAILY 01/06/21 04/17/21 [ Plus Tablet] Allergies Allergy/AdvReac Type Severity Reaction Status Date / Time No Known Allergies Allergy Verified 02/03/22 00:26 Review of Systems ROS Statement: Those systems with pertinent positive or pertinent negative responses have been documented in the HPI. ROS Other: All systems not noted in ROS Statement are negative. Past Medical History Past Medical History: No Reported History History of Any Multi-Drug Resistant Organisms: None Reported Past Surgical History: No Surgical Hx Reported Past Psychological History: Anxiety, Depression Smoking Status: Never smoker Past Alcohol Use History: Occasional Past Drug Use History: None Reported - Past Family History Mother Family Medical History: No Reported History General Exam Limitations: no limitations General appearance: alert, in no apparent distress Head exam: Present: atraumatic, normocephalic, normal inspection Eye exam: Present: normal appearance, PERRL, EOMI. Absent: scleral icterus, conjunctival injection, periorbital swelling ENT exam: Present: normal exam, mucous membranes moist Neck exam: Present: normal inspection, full ROM Respiratory exam: Present: normal lung sounds bilaterally. Absent: respiratory distress, wheezes, rales, rhonchi, stridor Cardiovascular Exam: Present: regular rate, normal rhythm, normal heart sounds. Absent: systolic murmur, diastolic murmur, rubs, gallop, clicks GI/Abdominal exam: Present: soft, normal bowel sounds. Absent: distended, tenderness, guarding, rebound, rigid Extremities exam: Present: normal inspection. Absent: pedal edema, joint swelling Back exam: Present: normal inspection Neurological exam: Present: alert, oriented X3, CN II-XII intact Psychiatric exam: Present: depressed, anxious, suicidal ideation Skin exam: Present: warm, dry, intact, normal color. Absent: rash Course Vital Signs 06/07/22 18:20 Temperature 98 F Pulse Rate 89 Respiratory 18 Rate Blood Pressure 134/88 O2 Sat by Pulse 100 Oximetry Medical Decision Making - Medical Decision Making 32-year-old female presenting to the emergency room with concerns of worsening anxiety and depression and occasional intrusive suicidal thoughts without plan or intent. No medical complaints or concerns. No indication for diagnostic imaging or laboratory studies. Will order EPS protocol of breath alcohol test, urine drug screen and if necessary Covid swab. Patient is cleared from medical standpoint for psychiatric evaluation. EPS notified of need for evaluation at 1845. EPS evaluation cleared for discharge with outpatient to referral services for depression in [place]. Will discharge home with follow-up her EPS recommendations and follow-up with her primary care provider. Advised if worsening depression or anxiety to return to the emergency room. Case discussed with Dr. Alberto. - Lab Data Lab Results 06/07/22 Range/Units 18:45 Urine HCG, Qual Not Detected (Not Detectd) Disposition Clinical Impression: Anxiety, depression Disposition: HOME SELF-CARE Condition: Stable Instructions (If sedation given, give patient instructions): Depression (DC), Anxiety (ED) Additional Instructions: Please continue to take your psychiatric medications as prescribed. Please follow-up with your primary care provider and with psychiatric referral services as provided by psychiatric nurse. Please return to the Emergency Department if symptoms worsen or any other concerns. Is patient prescribed a controlled substance at d/c from ED?: No Referrals: None,Stated [Primary Care Provider] - 1-2 days Time of Disposition: 20:45
[2022-06-07 20:43] LABS: Amphetamine Screen,Urine Detected (NotDetected); Barbiturate Screen,Urine Not Detected (NotDetected); Benzodiazepines Screen,Urine Detected (NotDetected); Cocaine Screen,Urine Not Detected (NotDetected); Methadone Screen, Urine Not Detected (NotDetected); Opiate Screen,Urine Not Detected (NotDetected); Oxycodone Screen, Urine Not Detected (NotDetected); Phencyclidine Screen,Urine Not Detected (NotDetected); Tricyclic Antidepressant,Urine Not Detected (NotDetected); Urn Cannabinoid Scrn Not Detected (NotDetected)
== END 2022-06-07 21:00 | disposition home or self-care (01) ==
LOC: EC 18:15
DX: O90.6 Postpartum mood disturbance (principal); F41.9 Anxiety disorder, unspecified; F32.A Depression, unspecified; Z79.899 Other long term (current) drug therapy
CPT/HCPCS: 80306; 81025; 99284

== ENCOUNTER 2022-06-10 06:39 | Inpatient (IN) | payer MEDICAID, OTHER ==
--- NOTE | 2022-06-10 08:39 | ED ---
Psych HPI - General Chief Complaint: Psychiatric Symptoms Stated Complaint: Mental Health Time Seen by Provider: 06/10/22 06:53 Source: patient, RN notes reviewed, old records reviewed Mode of arrival: ambulatory Limitations: no limitations - History of Present Illness Initial Comments: Patient is a 32-year-old female with history of anxiety and depression, presenting to the emergency department requesting a psychiatric evaluation. Patient states she has been dealing with up-and-down anxiety and depression for a few months, she is getting no help from her family PCP so she is presenting for further evaluation. Patient states she used to be on Adderall and Ativan over was trying to get off that medication but no help from her PCP. Currently she is taking Ativan for her anxiety. She had an old prescription for Zoloft, she tried it for a few days about a week ago but states she felt worse so has not been taking it. She is having intermittent suicidal thoughts overspecific plan at this moment. She denies any chest pain or shortness of breath, no abdominal pain. She denies being . Patient has no further complaints at this time. - Related Data Home Medications Medication Instructions Recorded Confirmed Dextroamphetamine/Amphetamine 20 mg PO TID 06/10/22 06/10/22 [Dextroamp-Amphetamin 20 mg Tab] LORazepam [Ativan] 0.5 mg PO BID PRN 06/10/22 06/10/22 Allergies Allergy/AdvReac Type Severity Reaction Status Date / Time No Known Allergies Allergy Verified 06/10/22 06:46 Review of Systems ROS Statement: Those systems with pertinent positive or pertinent negative responses have been documented in the HPI. ROS Other: All systems not noted in ROS Statement are negative. Past Medical History Past Medical History: No Reported History History of Any Multi-Drug Resistant Organisms: None Reported Past Surgical History: No Surgical Hx Reported Past Psychological History: Anxiety, Depression Smoking Status: Never smoker Past Alcohol Use History: Occasional Past Drug Use History: Marijuana - Past Family History Mother Family Medical History: No Reported History General Exam - General Exam Comments Initial Comments: GENERAL: Patient is well-developed and well-nourished. Patient is nontoxic and in no acute distress. HEAD: Atraumatic, normocephalic. EYES: Pupils equal round and reactive to light, extraocular movements intact, sclera anicteric, conjunctiva are normal. Eyelids were unremarkable. ENT: Moist mucous membranes. NECK: Normal range of motion, supple without lymphadenopathy or JVD. LUNGS: Unlabored respirations. Breath sounds clear to auscultation bilaterally and equal. No wheezes rales or rhonchi. HEART: Regular rate and rhythm without murmurs, rubs or gallops. ABDOMEN: Soft, nontender, normoactive bowel sounds. No guarding, no rebound. No masses appreciated. MUSCULOSKELETAL: Normal extremities with adequate strength and normal range of motion, no pitting or edema. No clubbing or cyanosis. NEUROLOGICAL: Patient is alert and oriented x 3. Motor and sensory are also intact. Cranial nerves II through XII grossly intact. Symmetrical smile. Normal speech, normal gait. PSYCH: Normal mood, normal affect. SKIN: Warm, Dry, normal turgor, no rashes or lesions noted. Limitations: no limitations Course Vital Signs 06/10/22 06:40 Temperature 98.0 F Pulse Rate 93 Respiratory 20 Rate Blood Pressure 119/83 O2 Sat by Pulse 99 Oximetry Medical Decision Making - Medical Decision Making Patient is a 32-year-old female here requesting psychiatric evaluation. She has a history of anxiety depression. She is having suicidal thoughts but no specific plan at this time. Patient is medically cleared for EPS evaluation. Patient was evaluated by psychiatry, she agrees to inpatient admission and will sign in voluntarily. Patient be transferred psychiatric unit. - Lab Data Lab Results 06/10/22 06/10/22 06/10/22 Range/Units 09:36 09:36 14:02 Urine HCG, Qual Not Detected (Not Detectd) Urine Opiates Screen Not Detected (NotDetected) Ur Oxycodone Screen Not Detected (NotDetected) Urine Methadone Screen Not Detected (NotDetected) Ur Propoxyphene Screen Not Detected (NotDetected) Ur Barbiturates Screen Not Detected (NotDetected) U Tricyclic Antidepress Not Detected (NotDetected) Ur Phencyclidine Scrn Not Detected (NotDetected) Ur Amphetamines Screen Not Detected (NotDetected) U Methamphetamines Scrn Not Detected (NotDetected) U Benzodiazepines Scrn Detected H (NotDetected) Urine Cocaine Screen Not Detected (NotDetected) U Marijuana (THC) Screen Detected H (NotDetected) Coronavirus (PCR) Not Detected (Not Detectd) Disposition Clinical Impression: Depression, Acute anxiety Disposition: TRANSFER TO PSYCH HOSP/UNIT Decision Date: 06/10/22 Decision Time: 14:13
[2022-06-10 09:49] LABS: Amphetamine Screen,Urine Not Detected (NotDetected); Barbiturate Screen,Urine Not Detected (NotDetected); Benzodiazepines Screen,Urine Detected (NotDetected); Cocaine Screen,Urine Not Detected (NotDetected); Methadone Screen, Urine Not Detected (NotDetected); Opiate Screen,Urine Not Detected (NotDetected); Oxycodone Screen, Urine Not Detected (NotDetected); Phencyclidine Screen,Urine Not Detected (NotDetected); Tricyclic Antidepressant,Urine Not Detected (NotDetected); Urn Cannabinoid Scrn Detected (NotDetected)
[2022-06-10] MEDS ORDERED: IBUPROFEN 600 MG TAB PO STA (12:02)
[2022-06-10] MEDS ORDERED: MAG HYDROX/AL HYDROX/SIMETH 30 ML CUP PO PRN (15:47)
[2022-06-10] MEDS ORDERED: HALOPERIDOL LACTATE 5 MG/ML 1 ML VIAL IM PRN (15:47)
[2022-06-10] MEDS ORDERED: ACETAMINOPHEN TAB 325 MG TAB PO PRN (15:47)
[2022-06-10] MEDS ORDERED: MAGNESIUM HYDROXIDE 2,400 MG/10 ML CUP PO PRN (15:47)
[2022-06-10] MEDS ORDERED: haloperidoL 5 MG TAB PO PRN (15:47)
[2022-06-10] MEDS: LORazepam 0.5 MG TAB PO PRN ×2 (16:49→23:12)
[2022-06-11 07:10] LABS: Basophils % (A) 1 %; Eosinophils # (A) 0.2 k/uL (0-0.7); Eosinophils % (A) 2 %; HCT 42.2 % (34.0-46.0); Lymphocytes # (A) 2.5 k/uL (1.0-4.8); Lymphocytes % (A) 33 %; MCH 30.8 pg (25.0-35.0); MCHC 33.3 g/dL (31.0-37.0); MCV 92.4 fL (80.0-100.0); Mean Platelet Volume 10.1; Monocytes # (A) 0.4 k/uL (0-1.0); Monocytes % (A) 6 %; Neutrophils # (A) 4.3 k/uL (1.3-7.7); Neutrophils % (A) 57 %; Platelet Count 209 k/uL (150-450); RBC 4.56 m/uL (3.80-5.40); RDW 12.3 % (11.5-15.5); WBC 7.5 k/uL (3.8-10.6)
[2022-06-11 07:44] LABS: ALT 17 U/L (4-34); AST 19 U/L (14-36); African American GFR (CKD) >90 (>60 ml/min/1.73 sqM); Albumin 4.6 g/dL (3.5-5.0); Alkaline Phosphatase 66 U/L (38-126); Anion Gap 11 mmol/L; Bilirubin, Delta 0.3 mg/dL (0.0-0.2); Bilirubin,Unconjugated 0.6 mg/dL (0.0-1.1); Blood Urea Nitrogen 13 mg/dL (7-17); Calcium 8.8 mg/dL (8.4-10.2); Carbon Dioxide 28 mmol/L (22-30); Chloride 101 mmol/L (98-107); Glucose 86 mg/dL (74-99); Non-African American GFR(CKD) >90 (>60 ml/min/1.73 sqM); Potassium 4.3 mmol/L (3.5-5.1); Sodium 140 mmol/L (137-145); Total Bilirubin 0.9 mg/dL (0.2-1.3); Total Protein 7.2 g/dL (6.3-8.2)
[2022-06-11] MEDS ORDERED: NICOTINE 14MG/24HR PATCH TRANSDERM SCH (09:00)
[2022-06-11] MEDS: METHYLPHENIDATE HCL 10 MG TAB PO SCH (09:39)
[2022-06-11 10:52] LABS: Chol/HDL Ratio 3.52 Ratio; LDL Cholesterol,Calculated 88.8 mg/dL (0.0-131.0)
[2022-06-11] MEDS ORDERED: hydrOXYzine pamoate 25 MG CAP PO PRN (11:44)
[2022-06-11] MEDS ORDERED: LORazepam 0.5 MG TAB PO PRN (11:45)
[2022-06-11] MEDS: DULoxetine HCL 30 MG CAPSULE.DR PO SCH (11:49)
--- NOTE | 2022-06-11 12:55 | P.HP ---
Psychiatric H&P - . H&P Date: 06/11/22 History & Physical: Allergies Allergy/AdvReac Type Severity Reaction Status Date / Time No Known Allergies Allergy Verified 06/10/22 06:46 Vital Signs Temp 98.4 F 06/11/22 06:22 Pulse 88 06/11/22 06:22 Resp 14 06/11/22 06:22 BP 112/68 06/11/22 06:22 Pulse Ox 96 06/10/22 16:30 FiO2 Intake & Output 06/10/22 06/11/22 06/11/22 18:59 06:59 18:59 Weight 83.4 kg Laboratory Last Values WBC 7.5 k/uL (3.8-10.6) 06/11/22 06:11 RBC 4.56 m/uL (3.80-5.40) 06/11/22 06:11 Hgb 14.0 gm/dL (11.4-16.0) 06/11/22 06:11 Hct 42.2 % (34.0-46.0) 06/11/22 06:11 MCV 92.4 fL (80.0-100.0) 06/11/22 06:11 MCH 30.8 pg (25.0-35.0) 06/11/22 06:11 MCHC 33.3 g/dL (31.0-37.0) 06/11/22 06:11 RDW 12.3 % (11.5-15.5) 06/11/22 06:11 Plt Count 209 k/uL (150-450) 06/11/22 06:11 MPV 10.1 06/11/22 06:11 Neutrophils % 57 % 06/11/22 06:11 Lymphocytes % 33 % 06/11/22 06:11 Monocytes % 6 % 06/11/22 06:11 Eosinophils % 2 % 06/11/22 06:11 Basophils % 1 % 06/11/22 06:11 Neutrophils # 4.3 k/uL (1.3-7.7) 06/11/22 06:11 Lymphocytes # 2.5 k/uL (1.0-4.8) 06/11/22 06:11 Monocytes # 0.4 k/uL (0-1.0) 06/11/22 06:11 Eosinophils # 0.2 k/uL (0-0.7) 06/11/22 06:11 Basophils # 0.0 k/uL (0-0.2) 06/11/22 06:11 Sodium 140 mmol/L (137-145) 06/11/22 06:11 Potassium 4.3 mmol/L (3.5-5.1) 06/11/22 06:11 Chloride 101 mmol/L (98-107) 06/11/22 06:11 Carbon Dioxide 28 mmol/L (22-30) 06/11/22 06:11 Anion Gap 11 mmol/L 06/11/22 06:11 BUN 13 mg/dL (7-17) 06/11/22 06:11 Creatinine 0.77 mg/dL (0.52-1.04) 06/11/22 06:11 Est GFR (CKD-EPI)AfAm >90 (>60 ml/min/1.73 sqM) 06/11/22 06:11 Est GFR (CKD-EPI)NonAf >90 (>60 ml/min/1.73 sqM) 06/11/22 06:11 Glucose 86 mg/dL (74-99) 06/11/22 06:[address] Glu mg/dL 110 06/11/22 06:11 Hemoglobin A1c 5.5 % (0.0-6.0) 06/11/22 06:11 Calcium 8.8 mg/dL (8.4-10.2) 06/11/22 06:11 Total Bilirubin 0.9 mg/dL (0.2-1.3) 06/11/22 06:11 Conjugated Bilirubin 0.0 mg/dL (0.0-0.3) 06/11/22 06:11 Unconjugated Bilirubin 0.6 mg/dL (0.0-1.1) 06/11/22 06:11 Delta Bilirubin 0.3 mg/dL (0.0-0.2) H 06/11/22 06:11 AST 19 U/L (14-36) 06/11/22 06:11 ALT 17 U/L (4-34) 06/11/22 06:11 Alkaline Phosphatase 66 U/L (38-126) 06/11/22 06:11 Total Protein 7.2 g/dL (6.3-8.2) 06/11/22 06:11 Albumin 4.6 g/dL (3.5-5.0) 06/11/22 06:11 Triglycerides 125.00 mg/dL (0.00-149.00) 06/11/22 06:11 Cholesterol 159.00 mg/dL (0.00-200.00) 06/11/22 06:11 LDL Cholesterol, Calc 88.8 mg/dL (0.0-131.0) 06/11/22 06:11 VLDL Cholesterol, Calc 25.00 mg/dL (5.00-40.00) 06/11/22 06:11 HDL Cholesterol 45.20 mg/dL (40.00-60.00) 06/11/22 06:11 Cholesterol/HDL Ratio 3.52 Ratio 06/11/22 06:11 TSH 1.480 mIU/L (0.465-4.680) 06/11/22 06:11 Urine HCG, Qual Not Detected (Not Detectd) 06/10/22 09:36 Urine Opiates Screen Not Detected (NotDetected) 06/10/22 09:36 Ur Oxycodone Screen Not Detected (NotDetected) 06/10/22 09:36 Urine Methadone Screen Not Detected (NotDetected) 06/10/22 09:36 Ur Propoxyphene Screen Not Detected (NotDetected) 06/10/22 09:36 Ur Barbiturates Screen Not Detected (NotDetected) 06/10/22 09:36 U Tricyclic Antidepress Not Detected (NotDetected) 06/10/22 09:36 Ur Phencyclidine Scrn Not Detected (NotDetected) 06/10/22 09:36 Ur Amphetamines Screen Not Detected (NotDetected) 06/10/22 09:36 U Methamphetamines Scrn Not Detected (NotDetected) 06/10/22 09:36 U Benzodiazepines Scrn Detected (NotDetected) H 06/10/22 09:36 Urine Cocaine Screen Not Detected (NotDetected) 06/10/22 09:36 U Marijuana (THC) Screen Detected (NotDetected) H 06/10/22 09:36 Coronavirus (PCR) Not Detected (Not Detectd) 06/10/22 14:02 06/11/22 11:49 IDENTIFYING DATA: Patient is a 32-year-old female currently , lives with her and 2 kids in the house. She is unemployed. HPI: Patient presented to the hospital yesterday requesting a psychiatric evaluation. Patient apparently was reporting ongoing suicidal ideations with no plan in the ER. She apparently has been getting prescribed Ativan and also Adderall by her PCP and has been taking it excessively. Patient's urine drug screen is positive for benzodiazepines and also marijuana. Patient was admitted voluntarily to the mental health unit. She states that she has been "struggling since " and explained that after both of her kids within the past 2-3 years after they were born she struggled with significant stress and also anxiety and problems with her mood. She states that she is not currently under "constant stress" and states that her and her moved here from [place] before the pandemic to be near family. She states that they have been having significant family issues between both her families. She claims that she has "PTSD issues" from losing her brother as he overdosed and in the past. She states that she was fired from work back in March because she was "trying to draw a line and stick up for myself". He does claim to have fluctuating mood and states that she does not have any manic-like symptoms as she has difficulties with staying focused and on task dealing with kids and other issues in her family. She states that she does have depression and anxiety. She claims that he didn't have racing thoughts. She was somewhat hyperverbal during conversation. States that her sleep and appetite have been poor. She does claim to be overwhelmed at this time. She states that she is overtaking her Adderall and stimulants prescribed by her PCP. Patient denies any current suicidal or homicidal ideations intent or plan. At this time patient denies any auditory or visual hallucinations. Patient admits to using marijuana "occasionally" and denies any other recreational drug use. PAST PSYCHIATRIC HISTORY: Patient states that she has a history of depression and anxiety and also ADHD diagnosed as a child. Patient claims that her PCP prescribes her Ativan and Adderall at this time. She also claims that she used to be on Zoloft in the past however it is not been helping her recently. Patient denies any previous psychiatric hospitalizations. Patient denies any psychiatric outpatient follow-up. Patient denies any history of suicide attempts in the past. PMH: As per medicine H&P ALLERGIES: as per EMR CHEMICAL DEPENDENCY HISTORY: as per HPI FAMILY PSYCHIATRIC/SUBSTANCE USE HISTORY: claims that her brother OD and SOCIAL HISTORY: Patient was born and raised in [place] and in [place]. she states that she moved back to [place] with her before the pandemic. They live in a house, have 2 kids. she is unemployed. She currently completed high school and did her associates degree. She denies any legal history. MENTAL STATUS EXAM: General Appearance: Patient appears to be stated age is alert, directable, and attempts to cooperate. Patient appears to have fair hygiene and grooming. Behavior: Patient is seated without any agitated behavior. overwhelmed/anxious Speech: Patient's speech is fluent and nonpressured. Hyperverbal. Mood/Affect: Patient reports their mood is depressed and anxious, affect is congruent Suicidality/Homicidality: Patient denies having any homicidal ideation intent or plan. Denies any suicidal ideations intent or plan Perceptions: Patient denies any visual hallucinations and denies any auditory hallucinations Though content/process: There is no evidence of any delusional thought content and thought process is linear and goal-directed. Rambles at times. Memory and concentration: AOX3, grossly intact for the purposes of this session. Can spell "WORLD" backwards Judgment and insight: poor STRENGTHS/WEAKNESSES: strength is that patient is resilient. Weakness is that patient has poor judgment and is impulsive INTELLECT: average IMPRESSIONS: Depressive disorder unspecified Generalized anxiety disorder Stimulant abuse Benzodiazepines abuse Cannabis use disorder mild PLAN: -Patient is admitted under voluntary status to MHU for stabilization of psychiatric symptoms and safety. Patient has signed adult voluntary form and medication consent and is placed in patient's chart. -Medications : Will start patient on Cymbalta 30 mg daily for mood/anxiety, held adderall and switched to ritalin 10 mg daily for adhd. Trazodone 50 mg daily at bedtime for insomnia/mood. -Ativan Vistaril and Haldol PRN for agitation/aggression -Patient was counselled on substance abuse and desired to cut back on use -Patient was informed of the risks, benefits and side effects of the medication and patient verbally consented to taking the medications. Patient signed med consent form and was placed in chart. -Internal Medicine consult to perform medical evaluation and physical. -NRT - not needed as patient does not smoke -SW on board for discharge planning. Encourage patient to participate in groups to work on coping skills. 06/11/22 12:50
[2022-06-11] MEDS ORDERED: traZODone HCL 50 MG TAB PO SCH (21:00)
[2022-06-12] MEDS: METHYLPHENIDATE HCL 10 MG TAB PO SCH (08:30)
[2022-06-12] MEDS: DULoxetine HCL 30 MG CAPSULE.DR PO SCH (08:30)
--- NOTE | 2022-06-12 08:36 | P.MDCNMH ---
<Sherman Mo - Last Filed: 06/12/22 15:50> History of Present Illness H&P Date: 06/12/22 History of Presenting Illness: Patient is a 32-year-old female with a past medical history of ADHD, anxiety, de pression, depression, polysubstance abuse, and cannabis use disorder. She is currently admitted voluntarily to the mental health unit secondary to reports of suicidal ideations. We have been consulted for medical management throughout patient's hospitalization. Patient was seen and fully evaluated on mental health unit. She reports currently feeling much better states that higher to coming into the hospital she was having "intrusive thoughts of suicide", but states these thoughts have currently resided and she denies ever having a suicidal plan. Patient reports since the of her first child she has suffered from moderate depression and anxiety and admits to recently abusing her prescription medications Adderall and Ativan. She denies having any complaints or concerns at this time including headache, lightheadedness, dizziness, chest pain, palpitations, shortness of breath, abdominal pain, nausea, vomiting, or experiencing any changes in her difficulties with her urine or bowel function. She reports her last menstrual cycle began on 06/08/22 and just ended. She denies tobacco use, other nonprescription drug use with the exception of marijuana, or any alcohol use. Patient reports she lives at home with her fianc and 2 kids. Labs: CBC, CMP, and lipid profile were unremarkable. Urine hCG negative for Urine drug screen positive for benzodiazepines and marijuana Code PCR negative. Review of systems: Pertinent positives and negatives as discussed in HPI, a complete review of systems was performed and all other systems are negative. Physical exam: Vital signs reviewed and stable. General: Nontoxic, no distress and appears stated age. Derm: Skin warm and dry, normal coloration for ethnicity. Head: Atraumatic, normocephalic and symmetric. Eyes: EOMs intact, no lid lag, and anicteric sclera Mouth: no lip lesions, mucus membranes moist Cardiovascular: regular rate and rhythm with normal S1S2, no murmur, positive posterior tibial pulses bilaterally, and cap refill < 2 seconds. Lungs: Respirations even, regular, and unlabored on room air. Lungs CTA bilaterally, no rhonchi, no rales, no wheezing, and no accessory muscle usage. Abdominal: soft, nontender to palpation, no guarding, no appreciable organomegaly Ext: ROM intact. No gross muscle atrophy, no edema, no contractures Neuro: Speech clear, face symmetrical and CN II-XII grossly intact with no noted focal neuro deficits Psych: Alert and oriented to person, place, time, and situation. Appropriate and pleasant affect. Assessment and Plan of Care: Anxiety, depression, and suicidal ideations -Management per primary admitting psychiatric team. -Provide safe and supportive care. -Maintain suicide precautions. Polysubstance abuse -Highly recommend discontinuation of Ativan and Adderall upon discharge. Cannabis use disorder -Highly recommend cessation of all cannibinoid use. Thank you for allowing us to participate in the care of this pleasant patient. Do not hesitate to contact us with questions. Someone can be reached from the [facility] [place]ist group all hours of the day at [phone] or via [employer]. Past Medical History Past Medical History: No Reported History History of Any Multi-Drug Resistant Organisms: None Reported Past Surgical History: No Surgical Hx Reported Smoking Status: Never smoker - Past Family History Mother Family Medical History: No Reported History Medications and Allergies Home Medications Medication Instructions Recorded Confirmed Type Dextroamphetamine/Amphetamine 20 mg PO TID 06/10/22 06/10/22 History [Dextroamp-Amphetamin 20 mg Tab] LORazepam [Ativan] 0.5 mg PO BID PRN 06/10/22 06/10/22 History Allergies Allergy/AdvReac Type Severity Reaction Status Date / Time No Known Allergies Allergy Verified 06/10/22 06:46 Physical Exam Vitals: Vital Signs Temp Pulse Resp BP Pulse Ox 06/12/22 06:44 97.6 F 91 14 126/66 98 Cranial Nerve Examination - Cranial Nerves Cranial Nerve II- Optic: Intact Cranial Nerve III- Oculomotor: Intact Cranial Nerve IV- Trochlear: Intact Cranial Nerve V- Trigeminal: Intact Cranial Nerve - Abducens: Intact Cranial Nerve VII- Facial: Intact Cranial Nerve VIII- Auditory: Intact Cranial Nerve IX- Glossopharyngeal: Intact Cranial Nerve X- Vagus: Intact Cranial Nerve XI- Accessory: Intact Cranial Nerve XII- Hypoglossal: Intact Results CBC & Chem 7: 06/11/22 06:11 06/11/22 06:11 <Melina Goldman - Last Filed: 06/12/22 16:14> History of Present Illness I reviewed the documentation as provided by the ZAINAB above, who is the original author of this note. I agree with the documented assessment and plan, with the following changes: none Physical Exam Osteopathic Statement: *. No significant issues noted on an osteopathic structural exam other than those noted in the History and Physical/Consult. Vitals: Vital Signs Temp Pulse Resp BP Pulse Ox 06/12/22 06:44 97.6 F 91 14 126/66 98 Results CBC & Chem 7: 06/11/22 06:11 06/11/22 06:11
--- NOTE | 2022-06-12 10:34 | P.PN ---
Progress Note - Text Progress Note Date: 06/12/22 Interval History: Patient was seen attending group and was directable and agreeable to speak with internal communications writer in the office. Patient claims that she feels more "talkative" and interacting with other patients now on the unit. She states she is feeling more hopeful about her condition and reflected back more about her stimulant tolerance and also abuse and also benzodiazepine abuse and we spoke about different ways to help manage this and help control anxiety other ways. She claims that she feels the Cymbalta has been helping so far. States that her mood has mildly improved since yesterday. She was agreeable to have the Cymbalta increased for tomorrow. States that last night the trazodone made her feel "stuffed up" in her nose however did manage to sleep. She claims that melatonin has helped in the past and would like to have that scheduled. Claims that she is going to groups and attempting to participate. States that she has a improvement in her appetite. At this time patient denies any suicidal or homical ideations, intent or plan. Patient denies any auditory, visual hallucin ations and denies any paranoia or delusions. She has been compliant with her medications. Mental Status Exam: General Appearance: Patient appears to be stated age is alert, directable, and attempts to cooperate. Patient appears to have fair hygiene and grooming. Behavior: Patient is seated without any agitated behavior. Less anxious today. Speech: Patient's speech is fluent and nonpressured. less Hyperverbal. Mood/Affect: Patient reports their mood is mildly improving, affect is congruent Suicidality/Homicidality: Patient denies having any homicidal ideation intent or plan. Denies any suicidal ideations intent or plan Perceptions: Patient denies any visual hallucinations and denies any auditory hallucinations Though content/process: There is no evidence of any delusional thought content and thought process is linear and goal-directed. Rambles at times, improving mildly Memory and concentration: AOX3, grossly intact for the purposes of this session Judgment and insight: Improving mildly IMPRESSIONS: Depressive disorder unspecified Generalized anxiety disorder Stimulant abuse Benzodiazepines abuse Cannabis use disorder mild Plan: -Patient continues to meet criteria for inpatient psychiatric admission for symptom stabilization and safety. Patient has signed adult voluntary form and medication consent and was placed in patient's chart. -Medications: increase to Cymbalta 60 mg daily for mood/anxiety, continue Ritalin 10 mg daily for adhd. change Trazodone 50 mg daily at bedtime prn for insomnia/mood. added melatonin 10 mg qhs for insomnia. -Ativan, Vistaril and Haldol PRN for agitation/aggression -NRT - not needed as patient does not smoke -SW on board for discharge planning. Encouraged the patient to participate in milieu. likely discharge early next week if patient continues to improve over the weekend.
[2022-06-12] MEDS: MELATONIN 5 MG TABLET PO SCH (20:50)
[2022-06-12] MEDS: LORazepam 0.5 MG TAB PO PRN (21:35)
[2022-06-13] MEDS: traZODone HCL 50 MG TAB PO PRN ×2 (00:26→22:53)
[2022-06-13 00:28] VITALS: RESP 16
[2022-06-13] MEDS: METHYLPHENIDATE HCL 10 MG TAB PO SCH (08:32)
[2022-06-13] MEDS: DULoxetine HCL 60 MG CAPSULE.DR PO SCH (09:33)
[2022-06-13] MEDS: LORazepam 0.5 MG TAB PO PRN (21:11)
--- NOTE | 2022-06-13 21:19 | P.PN ---
Progress Note - Text Progress Note Date: 06/13/22 Interval history: Patient was seen walking the hallways and socializing with peers, and was directable and agreeable to speak with copywriter. She reports good mood, sleep and appetite. She reports some anxiety but otherwise feel she is much better on the Cymbalta. She reports concern about her past stimulant abuse and that she is currently on Ritalin. She reports feeling good on the Ritalin but is concerned about having access to stimulants, but states she can talk to her psychiatrist about this on Wednesday. At this time, patient denies any suicidal or homicidal ideation, intent or plan; and denies any auditory or visual hallucinations. Patient denies any side effects from the medications and has been compliant with meds. Mental status exam: General Appearance: Patient appears to be stated age is alert, directable, and cooperative. Behavior: No agitated behavior. Patient is calm and directable. Speech: Patient's speech is fluent and non-pressured. Mood/Affect: Mood is improving mildly, affect is congruent and constricted. Suicidality/Homicidality: Patient denies having any suicidal or homicidal ideation intent or plan. Perceptions: Patient denies any auditory or visual hallucinations. Though content/process: There is no evidence of any delusional thought content and thought process is linear and goal-directed. Memory and concentration: AOX3, grossly intact for the purposes of this session Judgment and insight: improving mildly Assessment/Plan: Continue with current diagnosis. Patient continues to meet criteria for inpatient psychiatric admission for symptom stabilization and safety. Patient will be maintained on current psychotropic medication regimen. Monitor for medication compliance and for any psychotropic medication side effects. Will continue to monitor ongoing response to treatment. Encouraged participation in milieu.
[2022-06-13] MEDS: MELATONIN 5 MG TABLET PO SCH (22:54)
[2022-06-14] MEDS: DULoxetine HCL 60 MG CAPSULE.DR PO SCH (08:07)
[2022-06-14] MEDS: METHYLPHENIDATE HCL 10 MG TAB PO SCH (08:07)
[2022-06-14] MEDS ORDERED: PSEUDOEPHEDRINE 30 MG TAB PO PRN (17:04)
--- NOTE | 2022-06-14 21:16 | P.PN ---
Progress Note - Text Progress Note Date: 06/14/22 Interval history: Patient was seen reading a book in her room, and was directable and agreeable to speak with ghost writer. She reports good mood, sleep and appetite. She took an Ativan 0.5 mg PRN dose x 1 last night at bedtime for anxiety, but otherwise reports good mood so far today. At this time, patient denies any suicidal or homicidal ideation, intent or plan; and denies any auditory or visual hallucinations. Patient denies any side effects from the medications and has been compliant with meds except for refusing melatonin last night. She is hopeful for discharge tomorrow. Mental status exam: General Appearance: Patient appears to be stated age is alert, directable, and cooperative. Behavior: No agitated behavior. Patient is calm and directable. Speech: Patient's speech is fluent and non-pressured. Mood/Affect: Mood is "good", affect is congruent and constricted. Suicidality/Homicidality: Patient denies having any suicidal or homicidal ideation intent or plan. Perceptions: Patient denies any auditory or visual hallucinations. Though content/process: There is no evidence of any delusional thought content and thought process is linear and goal-directed. Memory and concentration: AOX3, grossly intact for the purposes of this session Judgment and insight: improving mildly Assessment/Plan: Continue with current diagnosis. Patient continues to meet criteria for inpatient psychiatric admission for symptom stabilization and safety. Patient will be maintained on current psychotropic medication regimen, with the exception of Ativan PRN which will be discontinued in preparation for discharge. Monitor for medication compliance and for any psychotropic medication side effects. Will continue to monitor ongoing response to treatment. Encouraged participation in milieu.
[2022-06-14] MEDS: MELATONIN 5 MG TABLET PO SCH (21:31)
[2022-06-14] MEDS: traZODone HCL 50 MG TAB PO PRN (22:56)
[2022-06-15 02:21] VITALS: BP 150/62; PULSE 85; TEMP 97.6
[2022-06-15] MEDS: METHYLPHENIDATE HCL 10 MG TAB PO SCH (08:08)
[2022-06-15] MEDS: DULoxetine HCL 60 MG CAPSULE.DR PO SCH (08:09)
--- NOTE | 2022-06-15 10:27 | P.DS ---
Providers Date of admission: 06/10/22 15:37 Expected date of discharge: 06/15/22 Attending physician: Bradley Borden MD Consults: 06/10/22 15:47 Consult Physician Routine Consulting Provider: Horace Physician Consult Reason/Comments: Medical H&P Do you want consulting provider notified?: Yes Primary care physician: Gasper Brenden - Discharge Diagnosis(es) (1) Depressive disorder Current Visit: Yes Status: Acute Priority: High (2) Generalized anxiety disorder Current Visit: Yes Status: Acute Priority: Medium (3) Stimulant abuse Current Visit: Yes Status: Acute Priority: Medium (4) Benzodiazepine abuse Current Visit: Yes Status: Acute Priority: Medium (5) Cannabis use disorder, mild, abuse Current Visit: Yes Status: Acute Priority: Low Hospital Course: Admission HPI: Admission note was completed by journalists and other writers "Patient is a 32-year-old female currently , lives with her and 2 kids in the house. She is unemployed. Patient presented to the hospital yesterday requesting a psychiatric evaluation. Patient apparently was reporting ongoing suicidal ideations with no plan in the ER. She apparently has been getting prescribed Ativan and also Adderall by her PCP and has been taking it excessively. Patient's urine drug screen is positive for benzodiazepines and also marijuana. Patient was admitted voluntarily to the mental health unit. She states that she has been "struggling since " and explained that after both of her kids within the past 2-3 years after they were born she struggled with significant stress and also anxiety and problems with her mood. She states that she is not currently under "constant stress" and states that her and her moved here from [place] before the pandemic to be near family. She states that they have been having significant family issues between both her families. She claims that she has "PTSD issues" from losing her brother as he overdosed and in the past. She states that she was fired from work back in March because she was "trying to draw a line and stick up for myself". He does claim to have fluctuating mood and states that she does not have any manic-like symptoms as she has difficulties with staying focused and on task dealing with kids and other issues in her family. She states that she does have depression and anxiety. She claims that he didn't have racing thoughts. She was somewhat hyperverbal during conversation. States that her sleep and appetite have been poor. She does claim to be overwhelmed at this time. She states that she is overtaking her Adderall and stimulants prescribed by her PCP. Patient denies any current suicidal or homicidal ideations intent or plan. At this time patient denies any auditory or visual hallucinations. Patient admits to using marijuana "occasionally" and denies any other recreational drug use." Hospital course: Upon admission to the unit patient was directable and agreeable to commence treatment and signed adult voluntary form . Patient got along well with other patients on the unit and followed unit protocol. Patient was compliant with the medications and denied any side effects throughout hospital course. Patient was started on Cymbalta and increased to a dose of 60 mg daily for mood/Wednesday, adderall was not available in the formulary therefore patient was started on a lower maintenance dose of ritalin 10 mg daily for adhd. Trazodone 50 mg daily at bedtime for insomnia/mood and melatonin 10 mg daily at bedtime for insomnia. Patient spoke of her stressors and engaged in therapy both group and individual. Patient was also seen by medical team for history and physical exam. Throughout the course of the hospitalization patient gradually improved with regards to mood, anxiety, sleep and became more future oriented with improved insight and judgment. On the day of discharge patient denied any suicidal or homicidal ideations intent or plan denied any auditory or visual hallucinations. Patient endorsed wanting to live for her health and her kids. The patient denied any access to guns or weapons. Patient denied any paranoia and did not endorse any delusions. Patient does have a significant history of substance abuse and was counseled on abstaining from all substances including alcohol and marijuana. Patient elected to do outpatient substance use treatment program through [facility]. Patient was also counseled on the medications and need for regular compliance and was encouraged to follow-up with their outpatient appointment for mental health and also for primary care. Prior to discharge a family meeting will be arranged by social work case manager to answer any questions and ensure safety upon discharge. Mental status exam: General Appearance: Patient appears to be stated age is alert, pleasant, and cooperative. Patient is in no acute distress and has improved hygiene and grooming Behavior: Patient is calmly seated without any agitated behavior. Speech: Patient's speech is fluent and nonpressured. Mood/Affect: Patient reports their mood is "better", affect is congruent and euthymic. Suicidality/Homicidality: Patient denies having any suicidal or homicidal ideation intent or plan. Perceptions: Patient denies any auditory or visual hallucinations. Though content/process: There is no evidence of any delusional thought content and thought process is linear and goal-directed. more future oriented Memory and concentration: AOX3, grossly intact for the purposes of this session. Can spell "WORLD" backwards correctly. Judgment and insight: improved with guarded prognosis Impression: Depressive disorder unspecified Generalized anxiety disorder Stimulant abuse Benzodiazepine abuse Cannabis use disorder mild Plan: -Continue with discharge today as patient has improved and stabilized psychiatrically and is not currently an imminent threat to herself and/or others. -Continue medications: Cymbalta 60 mg daily for mood/anxiety, we'll give a 7 day prescription of Ritalin 10 mg daily for ADHD and this medication can be gradually titrated down over the next several months as an outpatient to not develop tolerance or abuse. Trazodone 50 mg daily at bedtime for insomnia/mood, melatonin 10 mg daily at bedtime for insomnia. -Patient was counseled on the need for medication compliance and appropriate follow-up at mental health and also primary care for medical issues. Patient verbalized understanding and agreed. -Social work to arrange for and conduct family meeting to ensure safety upon discharge and answer any questions/concerns. Social work also to arrange for patients follow up appointments with [facility] for psychiatric care along with follow up with primary care provider. -Patient counseled on abstaining from recreational drugs and marijuana and alcohol. Was informed/educated on the adverse effects on their physical and mental health. Patient verbally agreed and understood. -Patient was instructed to return to the hospital or seek immediate medical care if their psychiatric or medical symptoms do worsen or reoccur. Allergies Allergy/AdvReac Type Severity Reaction Status Date / Time No Known Allergies Allergy Verified 06/10/22 06:46 Laboratory Results WBC 7.5 k/uL (3.8-10.6) 06/11/22 06:11 RBC 4.56 m/uL (3.80-5.40) 06/11/22 06:11 Hgb 14.0 gm/dL (11.4-16.0) 06/11/22 06:11 Hct 42.2 % (34.0-46.0) 06/11/22 06:11 MCV 92.4 fL (80.0-100.0) 06/11/22 06:11 MCH 30.8 pg (25.0-35.0) 06/11/22 06:11 MCHC 33.3 g/dL (31.0-37.0) 06/11/22 06:11 RDW 12.3 % (11.5-15.5) 06/11/22 06:11 Plt Count 209 k/uL (150-450) 06/11/22 06:11 MPV 10.1 06/11/22 06:11 Neutrophils % 57 % 06/11/22 06:11 Lymphocytes % 33 % 06/11/22 06:11 Monocytes % 6 % 06/11/22 06:11 Eosinophils % 2 % 06/11/22 06:11 Basophils % 1 % 06/11/22 06:11 Neutrophils # 4.3 k/uL (1.3-7.7) 06/11/22 06:11 Lymphocytes # 2.5 k/uL (1.0-4.8) 06/11/22 06:11 Monocytes # 0.4 k/uL (0-1.0) 06/11/22 06:11 Eosinophils # 0.2 k/uL (0-0.7) 06/11/22 06:11 Basophils # 0.0 k/uL (0-0.2) 06/11/22 06:11 Sodium 140 mmol/L (137-145) 06/11/22 06:11 Potassium 4.3 mmol/L (3.5-5.1) 06/11/22 06:11 Chloride 101 mmol/L (98-107) 06/11/22 06:11 Carbon Dioxide 28 mmol/L (22-30) 06/11/22 06:11 Anion Gap 11 mmol/L 06/11/22 06:11 BUN 13 mg/dL (7-17) 06/11/22 06:11 Creatinine 0.77 mg/dL (0.52-1.04) 06/11/22 06:11 Est GFR (CKD-EPI)AfAm >90 (>60 ml/min/1.73 sqM) 06/11/22 06:11 Est GFR (CKD-EPI)NonAf >90 (>60 ml/min/1.73 sqM) 06/11/22 06:11 Glucose 86 mg/dL (74-99) 06/11/22 06:[address] Glu mg/dL 110 06/11/22 06:11 Hemoglobin A1c 5.5 % (0.0-6.0) 06/11/22 06:11 Calcium 8.8 mg/dL (8.4-10.2) 06/11/22 06:11 Total Bilirubin 0.9 mg/dL (0.2-1.3) 06/11/22 06:11 Conjugated Bilirubin 0.0 mg/dL (0.0-0.3) 06/11/22 06:11 Unconjugated Bilirubin 0.6 mg/dL (0.0-1.1) 06/11/22 06:11 Delta Bilirubin 0.3 mg/dL (0.0-0.2) H 06/11/22 06:11 AST 19 U/L (14-36) 06/11/22 06:11 ALT 17 U/L (4-34) 06/11/22 06:11 Alkaline Phosphatase 66 U/L (38-126) 06/11/22 06:11 Total Protein 7.2 g/dL (6.3-8.2) 06/11/22 06:11 Albumin 4.6 g/dL (3.5-5.0) 06/11/22 06:11 Triglycerides 125.00 mg/dL (0.00-149.00) 06/11/22 06:11 Cholesterol 159.00 mg/dL (0.00-200.00) 06/11/22 06:11 LDL Cholesterol, Calc 88.8 mg/dL (0.0-131.0) 06/11/22 06:11 VLDL Cholesterol, Calc 25.00 mg/dL (5.00-40.00) 06/11/22 06:11 HDL Cholesterol 45.20 mg/dL (40.00-60.00) 06/11/22 06:11 Cholesterol/HDL Ratio 3.52 Ratio 06/11/22 06:11 TSH 1.480 mIU/L (0.465-4.680) 06/11/22 06:11 Urine HCG, Qual Not Detected (Not Detectd) 06/10/22 09:36 Urine Opiates Screen Not Detected (NotDetected) 06/10/22 09:36 Ur Oxycodone Screen Not Detected (NotDetected) 06/10/22 09:36 Urine Methadone Screen Not Detected (NotDetected) 06/10/22 09:36 Ur Propoxyphene Screen Not Detected (NotDetected) 06/10/22 09:36 Ur Barbiturates Screen Not Detected (NotDetected) 06/10/22 09:36 U Tricyclic Antidepress Not Detected (NotDetected) 06/10/22 09:36 Ur Phencyclidine Scrn Not Detected (NotDetected) 06/10/22 09:36 Ur Amphetamines Screen Not Detected (NotDetected) 06/10/22 09:36 U Methamphetamines Scrn Not Detected (NotDetected) 06/10/22 09:36 U Benzodiazepines Scrn Detected (NotDetected) H 06/10/22 09:36 Urine Cocaine Screen Not Detected (NotDetected) 06/10/22 09:36 U Marijuana (THC) Screen Detected (NotDetected) H 06/10/22 09:36 Coronavirus (PCR) Not Detected (Not Detectd) 06/10/22 14:02 Vital Signs Temp 97.6 F 06/14/22 23:30 Pulse 85 06/14/22 23:30 Resp 16 06/14/22 23:30 BP 150/62 06/14/22 23:30 Pulse Ox 97 06/14/22 23:30 FiO2 Intake & Output 06/14/22 06/15/22 06/15/22 18:59 06:59 18:59 Weight 84.2 kg Patient Condition at Discharge: Stable Plan - Discharge Summary Discharge Rx Participant: No New Discharge Prescriptions: New DULoxetine HCL [Cymbalta] 60 mg PO DAILY 30 Days cap traZODone HCL [Desyrel] 50 mg PO HS PRN 30 Days tab PRN Reason: Insomnia Melatonin 10 mg PO HS 30 Days tab Methylphenidate HCl [Ritalin] 10 mg PO AC-BRKFST 7 Days #7 tab Discontinued LORazepam [Ativan] 0.5 mg PO BID PRN PRN Reason: Anxiety Dextroamphetamine/Amphetamine [Dextroamp-Amphetamin 20 mg Tab] 20 mg PO TID Discharge Medication List DULoxetine HCL [Cymbalta] 60 mg PO DAILY 30 Days cap 06/15/22 [Rx] Melatonin 10 mg PO HS 30 Days tab 06/15/22 [Rx] Methylphenidate HCl [Ritalin] 10 mg PO AC-BRKFST 7 Days #7 tab 06/15/22 [Rx] traZODone HCL [Desyrel] 50 mg PO HS PRN 30 Days tab 06/15/22 [Rx] Follow up Appointment(s)/Referral(s): [facility] [Outside] - 06/23/22 1:30 pm (with intake ) None,Stated [REFERRING] - 1-2 days Activity/Diet/Wound Care/Special Instructions: Avoid the use of street drugs and alcohol. Take all prescriptions as prescribed. When you are in need of refills on your medications, please contact your medical provider and/or outpatient psychiatrist to have this done. Please go to scheduled outpatient appointment for aftercare treatment. If symptoms return or become worse, call the crisis line at and/or go to the nearest emergency room for evaluation. Discharge Disposition: HOME SELF-CARE
== END 2022-06-15 12:04 | disposition home or self-care (01) | DRG 881 ==
LOC: EC 06:39 → 3MHU 15:37
PROVIDERS: ADMIT Psychiatry & Neurology Psychiatry; ATTEND Psychiatry & Neurology Psychiatry
DX: F32.A Depression, unspecified (principal); R45.851 Suicidal ideations; F41.1 Generalized anxiety disorder; F12.10 Cannabis abuse, uncomplicated; F13.10 Sedative, hypnotic or anxiolytic abuse, uncomplicated; F15.10 Other stimulant abuse, uncomplicated; F43.10 Post-traumatic stress disorder, unspecified; F90.9 Attention-deficit hyperactivity disorder, unspecified type; G47.00 Insomnia, unspecified; Z79.899 Other long term (current) drug therapy; Z20.822 Contact with and (suspected) exposure to COVID-19
CPT/HCPCS: 80053; 80061; 80306; 81025; 82075; 82248; 83036; 84443; 85025; 87635; 99284

== ENCOUNTER 2023-04-09 00:28 | Emergency (ER) | payer OTHER ==
[2023-04-09 00:39] VITALS: RESP 18
[2023-04-09] MEDS ORDERED: ONDANSETRON 4 MG/2 ML VIAL IVP STA (00:51)
[2023-04-09] MEDS ORDERED: SODIUM CHLORIDE 0.9% 1,000 ML IV STA (00:51)
[2023-04-09] MEDS ORDERED: KETOROLAC 15 MG/ML 1 ML VIAL IVP STA (00:51)
--- NOTE | 2023-04-09 01:29 | ED ---
Abdominal Pain HPI - General Chief Complaint: Abdominal Pain Stated Complaint: Abd pain Time Seen by Provider: 04/09/23 00:43 Source: patient Mode of arrival: ambulatory - History of Present Illness Initial Comments: 32-year-old female presenting with chief complaint of diarrhea and abdominal pain. Patient states that she has had diarrhea ongoing for the last 10 days. No hematochezia or melena. Patient does admit to lower cramping abdominal pain that has been ongoing for the last day or 2. No known fevers. She admits to nausea with no vomiting. No URI like symptoms. No chest pain or difficulty breathing. No dysuria, hematuria, flank pain. No vaginal discharge or b leeding. - Related Data Previous Rx's Medication Instructions Recorded DULoxetine HCL [Cymbalta] 60 mg PO DAILY 30 Days cap 06/15/22 Melatonin 10 mg PO HS 30 Days tab 06/15/22 Methylphenidate HCl [Ritalin] 10 mg PO AC-BRKFST 7 Days #7 tab 06/15/22 traZODone HCL [Desyrel] 50 mg PO HS PRN 30 Days tab 06/15/22 Allergies Allergy/AdvReac Type Severity Reaction Status Date / Time No Known Allergies Allergy Verified 04/09/23 00:39 Review of Systems ROS Statement: Those systems with pertinent positive or pertinent negative responses have been documented in the HPI. ROS Other: All systems not noted in ROS Statement are negative. Past Medical History Past Medical History: No Reported History History of Any Multi-Drug Resistant Organisms: None Reported Past Surgical History: No Surgical Hx Reported Past Psychological History: Anxiety, Depression Smoking Status: Never smoker Past Alcohol Use History: Rare Past Drug Use History: None Reported - Past Family History Mother Family Medical History: No Reported History General Exam Limitations: no limitations General appearance: alert, in no apparent distress Head exam: Present: atraumatic, normocephalic, normal inspection Eye exam: Present: normal appearance, EOMI Neck exam: Present: normal inspection, full ROM Respiratory exam: Present: normal lung sounds bilaterally. Absent: respiratory distress, wheezes, rales, rhonchi, stridor Cardiovascular Exam: Present: regular rate, normal rhythm, normal heart sounds. Absent: systolic murmur, diastolic murmur, rubs, gallop, clicks GI/Abdominal exam: Present: soft, tenderness (lower abdomen). Absent: distended, guarding, rebound, rigid Neurological exam: Present: alert, oriented X3, CN II-XII intact Psychiatric exam: Present: normal affect, normal mood Skin exam: Present: warm, dry, intact, normal color. Absent: rash Course Vital Signs 04/09/23 04/09/23 00:35 01:39 Temperature 98.4 F 99.3 F Pulse Rate 112 H 67 Respiratory 18 18 Rate Blood Pressure 129/83 129/79 O2 Sat by Pulse 100 100 Oximetry Medical Decision Making - Medical Decision Making Was pt. sent in by a medical professional or institution (, PA, FLORAL ASSISTANT, urgent care, hospital, or halfway...) When possible be specific @ -No Did you speak to anyone other than the patient for history (EMS, parent, family, police, friend...)? What history was obtained from this source @ -No Did you review nursing and triage notes (agree or disagree)? Why? @ -I reviewed and agree with nursing and triage notes Were old charts reviewed (outside hosp., previous admission, EMS record, old EKG, old radiological studies, urgent care reports/EKG's, halfway records)? Report findings @ -No old charts were reviewed Differential Diagnosis (chest pain, altered mental status, abdominal pain women, abdominal pain men, vaginal bleeding, weakness, fever, dyspnea, syncope, headache, dizziness, GI bleed, back pain, seizure, CVA, palpatations, mental health, musculoskeletal)? @ -MDM Differential Abdominal Pain Women: Appendicitis, Cholecystitis, diverticulosis, ischemic bowel, pancreatitis, hepatitis, UTI, gastroenteritis, AAA, incarcerated hernia, bowel obstruction, constipation, inflammatory bowel, hepatitis, peptic ulcer disease, splenic infarction, perforated viscus, vulvitis, ovarian torsion, PID, kidney stone, placenta abruption... This is not meant to be an all-inclusive list EKG interpreted by me (3pts min.). @ -As above X-rays interpreted by me (1pt min.). @ -None done CT interpreted by me (1pt min.). @ -CT shows no acute process U/S interpreted by me (1pt. min.). @ -None done What testing was considered but not performed or refused? (CT, X-rays, U/S, labs)? Why? @ -None What meds were considered but not given or refused? Why? @ -None Did you discuss the management of the patient with other professionals (professionals i.e. DrBryon, PA, FLORAL ASSISTANT, lab, RT, psych nurse, social media content specialist, mill feeder, teacher, disbursing officer, case liner)? Give summary @ -No Was smoking cessation discussed for >3mins.? @ -No Was critical care preformed (if so, how long)? @ -No Were there social determinants of health that impacted care today? How? (Homelessness, low income, unemployed, alcoholism, drug addiction, transportation, low edu. Level, literacy, decrease access to med. care, group home, rehab)? @ -No Was there de-escalation of care discussed even if they declined (Discuss DNR or withdrawal of care, Hospice)? DNR status @ -No What co-morbidities impacted this encounter? (DM, HTN, Smoking, COPD, CAD, Cancer, CVA, ARF, Chemo, Hep., AIDS, mental health diagnosis, sleep apnea, morbid obesity)? @ -None Was patient admitted / discharged? Hospital course, mention meds given and route, prescriptions, significant lab abnormalities, going to OR and other pertinent info. @ -32-year-old female presenting with chief complaint of diarrhea and lower abdominal cramping. Physical examination was conducted. Lab work shows WBC 12.8. Lab work is otherwise unremarkable. CT shows no acute process. Stool culture is sent out. Patient is educated on today's findings and instructed to follow-up with PCP. Follow-up with PCP. Report back to ER with any new or worsening symptoms. Discussed return parameters and answered all questions. Patient conveyed verbal understanding and agreed to the plan. I discussed this case in detail with my attending Dr. Strange Undiagnosed new problem with uncertain prognosis? @ -No Drug Therapy requiring intensive monitoring for toxicity (Heparin, Nitro, Insulin, Cardizem)? @ -No Were any procedures done? @ -No Diagnosis/symptom? @ -Diarrhea, abdominal pain Acute, or Chronic, or Acute on Chronic? @ -Acute Uncomplicated (without systemic symptoms) or Complicated (systemic symptoms)? @ -Uncomplicated Side effects of treatment? @ -No Exacerbation, Progression, or Severe Exacerbation? @ -No Poses a threat to life or bodily function? How? (Chest pain, [place], [place], pneumonia, PE, COPD, DKA, ARF, appy, cholecystitis, CVA, Diverticulitis, Homicidal, Suicidal, threat to staff... and all critical care pts) @ -No - Lab Data Result diagrams: 04/09/23 01:04/09/23 01: Lab Results 04/09/23 04/09/23 04/09/23 Range/Units 01: 01: 01:26 WBC 12.8 H (3.8-10.6) k/uL RBC 4.20 (3.80-5.40) m/uL Hgb 13.1 (11.4-16.0) gm/dL Hct 38.7 (34.0-46.0) % MCV 92.2 (80.0-100.0) fL MCH 31.3 (25.0-35.0) pg MCHC 34.0 (31.0-37.0) g/dL RDW 13.2 (11.5-15.5) % Plt Count 171 (150-450) k/uL MPV 9.0 Neutrophils % 56 % Lymphocytes % 20 % Monocytes % 5 % Eosinophils % 17 % Basophils % 0 % Neutrophils # 7.2 (1.3-7.7) k/uL Lymphocytes # 2.6 (1.0-4.8) k/uL Monocytes # 0.7 (0-1.0) k/uL Eosinophils # 2.2 H (0-0.7) k/uL Basophils # 0.0 (0-0.2) k/uL Sodium (137-145) mmol/L Potassium (3.5-5.1) mmol/L Chloride (98-107) mmol/L Carbon Dioxide (22-30) mmol/L Anion Gap mmol/L BUN (7-17) mg/dL Creatinine (0.52-1.04) mg/dL Est GFR (CKD-EPI)AfAm (>60 ml/min/1.73 sqM) Est GFR (CKD-EPI)NonAf (>60 ml/min/1.73 sqM) Glucose (74-99) mg/dL Plasma Lactic Acid Fernandez (0.7-2.0) mmol/L Calcium (8.4-10.2) mg/dL Total Bilirubin (0.2-1.3) mg/dL AST (14-36) U/L ALT (4-34) U/L Alkaline Phosphatase (38-126) U/L Total Protein (6.3-8.2) g/dL Albumin (3.5-5.0) g/dL Amylase (30-110) U/L Lipase (23-300) U/L Urine Color Yellow Urine Appearance Clear (Clear) Urine pH 5.5 (5.0-8.0) Ur Specific [place] 1.007 (1.001-1.035) Urine Protein Negative (Negative) Urine Glucose (UA) Negative (Negative) Urine Ketones Negative (Negative) Urine Blood Negative (Negative) Urine Nitrite Negative (Negative) Urine Bilirubin Negative (Negative) Urine Urobilinogen <2.0 (<2.0) mg/dL Ur Leukocyte Esterase Negative (Negative) Urine HCG, Qual Not Detected (Not Detectd) 04/09/23 04/09/23 Range/Units 01:26 01:26 WBC (3.8-10.6) k/uL RBC (3.80-5.40) m/uL Hgb (11.4-16.0) gm/dL Hct (34.0-46.0) % MCV (80.0-100.0) fL MCH (25.0-35.0) pg MCHC (31.0-37.0) g/dL RDW (11.5-15.5) % Plt Count (150-450) k/uL MPV Neutrophils % % Lymphocytes % % Monocytes % % Eosinophils % % Basophils % % Neutrophils # (1.3-7.7) k/uL Lymphocytes # (1.0-4.8) k/uL Monocytes # (0-1.0) k/uL Eosinophils # (0-0.7) k/uL Basophils # (0-0.2) k/uL Sodium 137 (137-145) mmol/L Potassium 3.6 (3.5-5.1) mmol/L Chloride 102 (98-107) mmol/L Carbon Dioxide 28 (22-30) mmol/L Anion Gap 7 mmol/L BUN 17 (7-17) mg/dL Creatinine 0.77 (0.52-1.04) mg/dL Est GFR (CKD-EPI)AfAm >90 (>60 ml/min/1.73 sqM) Est GFR (CKD-EPI)NonAf >90 (>60 ml/min/1.73 sqM) Glucose 91 (74-99) mg/dL Plasma Lactic Acid Fernandez 0.7 (0.7-2.0) mmol/L Calcium 9.1 (8.4-10.2) mg/dL Total Bilirubin 0.3 (0.2-1.3) mg/dL AST 28 (14-36) U/L ALT 27 (4-34) U/L Alkaline Phosphatase 66 (38-126) U/L Total Protein 6.5 (6.3-8.2) g/dL Albumin 3.9 (3.5-5.0) g/dL Amylase 46 (30-110) U/L Lipase 117 (23-300) U/L Urine Color Urine Appearance (Clear) Urine pH (5.0-8.0) Ur Specific [place] (1.001-1.035) Urine Protein (Negative) Urine Glucose (UA) (Negative) Urine Ketones (Negative) Urine Blood (Negative) Urine Nitrite (Negative) Urine Bilirubin (Negative) Urine Urobilinogen (<2.0) mg/dL Ur Leukocyte Esterase (Negative) Urine HCG, Qual (Not Detectd) Disposition Clinical Impression: Diarrhea, Abdominal pain Disposition: HOME SELF-CARE Condition: Good Instructions (If sedation given, give patient instructions): Acute Diarrhea (ED), Abdominal Pain (ED) Additional Instructions: Follow-up with PCP. Report back to ER with any new or worsening symptoms. Is patient prescribed a controlled substance at d/c from ED?: No Referrals: Annia Dumont DO [Primary Care Provider] - 1-2 days Time of Disposition: 03:30
[2023-04-09 01:35] LABS: Basophils % (A) 0 %; Eosinophils # (A) 2.2 k/uL (0-0.7); Eosinophils % (A) 17 %; HCT 38.7 % (34.0-46.0); HGB 13.1 gm/dL (11.4-16.0); Lymphocytes # (A) 2.6 k/uL (1.0-4.8); Lymphocytes % (A) 20 %; MCH 31.3 pg (25.0-35.0); MCV 92.2 fL (80.0-100.0); Monocytes # (A) 0.7 k/uL (0-1.0); Monocytes % (A) 5 %; Neutrophils # (A) 7.2 k/uL (1.3-7.7); Neutrophils % (A) 56 %; Platelet Count 171 k/uL (150-450); RDW 13.2 % (11.5-15.5); WBC 12.8 k/uL (3.8-10.6)
[2023-04-09 01:45] LABS: ALT 27 U/L (4-34); AST 28 U/L (14-36); African American GFR (CKD) >90 (>60 ml/min/1.73 sqM); Albumin 3.9 g/dL (3.5-5.0); Alkaline Phosphatase 66 U/L (38-126); Amylase 46 U/L (30-110); Anion Gap 7 mmol/L; Blood Urea Nitrogen 17 mg/dL (7-17); Calcium 9.1 mg/dL (8.4-10.2); Carbon Dioxide 28 mmol/L (22-30); Chloride 102 mmol/L (98-107); Glucose 91 mg/dL (74-99); Lipase 117 U/L (23-300); Non-African American GFR(CKD) >90 (>60 ml/min/1.73 sqM); Potassium 3.6 mmol/L (3.5-5.1); Sodium 137 mmol/L (137-145); Total Bilirubin 0.3 mg/dL (0.2-1.3); Total Protein 6.5 g/dL (6.3-8.2)
[2023-04-09 02:00] LABS: Appearance,Urine Clear (Clear); Bilirubin,Urine Negative (Negative); Blood,Urine Negative (Negative); Glucose,Urine (UA) Negative (Negative); Ketones,Urine Negative (Negative); Leukocyte Esterase,Urine Negative (Negative); Nitrite,Urine Negative (Negative); PH, Urine 5.5 (5.0-8.0); Protein,Urine Negative (Negative); Specific Gravity,Urine 1.007 (1.001-1.035); Urobilinogen,Urine <2.0 mg/dL (<2.0)
[2023-04-09 02:02] LABS: Color,Urine Yellow
--- NOTE | 2023-04-09 03:02 | CT ---
EXAMINATION TYPE: CT abdomen pelvis w con DATE OF EXAM: 04/09/2023 COMPARISON: HISTORY: DIARRHEA X10 DAYS CT DLP: 1215.2 mGycm Automated exposure control for dose reduction was used. TECHNIQUE: Helical acquisition of images was performed from the lung bases through the pelvis. CONTRAST: Performed without Oral Contrast and with IV Contrast, patient injected with 100 mL of Isovue 300. ABDOMEN: Liver and Biliary system: Normal. Adrenal glands: Normal. Kidneys and ureters: Normal. Spleen: Normal. Pancreas: Normal. Gallbladder: Normal. Lymph nodes, Peritoneum and mesentery: There is no mesenteric or retroperitoneal lymphadenopathy. Gastrointestinal tract: There are no dilated loops of bowel or free intraperitoneal air. The appe ndix is normal. Aorta/IVC: No aortic aneurysm. IVC normal. Abdominal wall: Normal. PELVIS: Fluid: There is no free fluid in the pelvis. Lymph Nodes: There is no pelvic or inguinal lymphadenopathy.. Urinary bladder: Normal. BONES: There are no osseous destructive lesions.. ADDITIONAL SIGNIFICANT FINDINGS: None. IMPRESSION: No acute process within the abdomen or pelvis.
[2023-04-09 04:50] VITALS: BP 115/71; PULSE 83; TEMP 98.2
== END 2023-04-09 04:52 | disposition home or self-care (01) ==
LOC: EC 00:28
DX: R10.9 Unspecified abdominal pain (principal); R19.7 Diarrhea, unspecified; F41.9 Anxiety disorder, unspecified; F32.A Depression, unspecified; Z79.899 Other long term (current) drug therapy
CPT/HCPCS: 36415; 80053; 82150; 83605; 83690; 85025; 81003; 81025; 74177; 99284; 96374; 96375; 96361; J2405; J1885; Q9967